=== PATIENT | female | born 1940 | race Caucasian/White ===

== ENCOUNTER → 2016-10-21 | Outpatient (CLI) | payer MEDICARE | LOC: LABWHC1 11:44 | PROVIDERS: ATTEND Internal Medicine Rheumatology | DX: M05.79 Rheumatoid arthritis with rheumatoid factor of multiple sites without organ or systems involvement (principal) | CPT/HCPCS: 36415; 86480 ==

== ENCOUNTER → 2016-11-26 | Outpatient (CLI) | payer MEDICARE ==
--- NOTE | 2016-11-26 11:23 | MM ---
Reason for exam: follow-up at short interval from prior study. Last mammogram was performed 6 months ago. History: Patient is postmenopausal. Family history of breast cancer in aunt at age 60, premenopausal breast cancer in mother at age 42, and breast cancer in aunt at age 80. Benign MG stereo VAD BX addl RT of the right breast, May 17, 2015. Benign MG stereo VAD BX RT of the right breast, May 17, 2015. Benign left mammotome panel of the left breast, December 18, 2006. Took estrogen for 2 years beginning at age 50. Physical Findings: Nurse did not find any significant physical abnormalities on exam. MG 3D Diag Mammo W/Cad RT CC, MLO, and ML view(s) were taken of the right breast. Prior study comparison: May 16, 2016, bilateral MG 3d screening mammo w/cad. November 16, 2015, right breast MG 3d diag mammo w/cad RT. Previous mammotome biopsy within the right breast x2. There may be a chest wall lymph node. No significant new findings when compared with previous films. These results were verbally communicated with the patient and result sheet given to the patient on 11/26/16. ASSESSMENT: Probably benign, BI-RAD 3 RECOMMENDATION: Follow-up diagnostic mammogram of both breasts in 6 months. Left on schedule in 6 months.
== END | disposition home or self-care (01) ==
LOC: RADMAMWWP 09:59
PROVIDERS: ATTEND Internal Medicine
DX: R92.8 Other abnormal and inconclusive findings on diagnostic imaging of breast (principal)
CPT/HCPCS: G0206; G0279

== ENCOUNTER → 2017-02-10 | Outpatient (CLI) | payer MEDICARE ==
--- NOTE | 2017-02-10 11:59 | BD ---
EXAMINATION TYPE: MG DEXA axial skeleton. DATE OF EXAM: 02/10/2017 CLINICAL HISTORY:Z78.0 Post [place] W/o HRT, Chronic Steroid UseZ79.52 Height: 63.25 Weight: 168 FRAX RISK QUESTIONS: Alcohol (3 or more units per day): no Family History (Parent hip fracture): no Glucocorticoids (More than 3mos): yes (Ex: prednisone, prednisolone, methylprednisolone, dexamethasone, and hydrocortisone). History of Fracture in Adulthood: yes nose; many years ago Secondary Osteoporosis: 1. Type 1 Diabetes: no 2. Hyperthyroidism: no 3. Menopause before 45: no 4. Malnutrition: no 5. Chronic liver disease: no Rheumatoid Arthritis: yes Current Tobacco Use: no RISK FACTORS HISTORY OF: Family History of Osteoporosis: no Active: yes Diet low in dairy products/other sources of calcium: no Postmenopausal woman: yes Take estrogen and/or progesterone medications: not now How long: about age [age] Lost more than 2 inches in height since high school: no Frequent falls: no Poor Health: no Hyperparathyroidism: no Adrenal Insufficiency: no MEDICATIONS: Prednisone or other steroids: yes How Long: several years Thyroid Medications: no Osteoporosis Medications: no Additional Medications: Vitamin D ; Calcium, Metformin, rheumatoid arthritis drugs Additional History: chronic steroid use, hip pain EXAM MEASUREMENTS: Bone mineral densitometry was performed using the [employer] System. Bone mineral density as measured about the Lumbar spine is: ----- L1-L4(G/cm2): 1.252 T Score Values are as follows: ----- L2: 0.6 ----- L3: 0.3 ----- L4: 0.4 ----- L1-L4: 0.6 Bone mineral density has: Decreased -7.7% since study of: 10/16/2014 Bone mineral density about the R hip (g/cm2): 0.939 Bone mineral density about the L hip (g/cm2): 1.111 T Score values are as follows: -----R Neck: -0.7 -----L Neck: 0.6 -----R Total: 0.2 -----L Total: 0.7 Bone mineral density has: Decreased -2.8% since study of: 10/16/2014 IMPRESSION: No evidence for osteoporosis or osteopenia. NOTE: T-SCORE=SD OF THE YOUNG ADULT MEAN.
== END | disposition home or self-care (01) ==
LOC: RADBDWWP 09:22
PROVIDERS: ATTEND Internal Medicine
DX: Z78.0 Asymptomatic menopausal state (principal); Z79.52 Long term (current) use of systemic steroids
CPT/HCPCS: 77080

== ENCOUNTER → 2017-07-21 | Outpatient (CLI) | payer MEDICARE ==
--- NOTE | 2017-07-21 11:46 | MM ---
Reason for exam: follow-up at short interval from prior study. Last mammogram was performed 8 months ago. History: Patient is postmenopausal. Family history of breast cancer in aunt at age 60, premenopausal breast cancer in mother at age 42, and breast cancer in aunt at age 80. Benign MG stereo VAD BX addl RT of the right breast, May 17, 2015. Benign MG stereo VAD BX RT of the right breast, May 17, 2015. Benign left mammotome panel of the left breast, December 18, 2006. Took estrogen for 2 years beginning at age 50. Physical Findings: Nurse did not find any significant physical abnormalities on exam. MG 3D Diag Mammo W/Cad CHANCE Bilateral CC and MLO view(s) were taken. Prior study comparison: November 26, 2016, right breast MG 3d diag mammo w/cad RT. May 16, 2016, bilateral MG 3d screening mammo w/cad. The breast tissue is heterogeneously dense. This may lower the sensitivity of mammography. Stable benign calcifications. Previous mammotome biopsy in the right and left breast. There is no discrete abnormality. No significant new findings when compared with previous films. These results were verbally communicated with the patient and result sheet given to the patient on 07/21/17. ASSESSMENT: Benign, BI-RAD 2 RECOMMENDATION: Routine screening mammogram of both breasts in 1 year.
== END | disposition home or self-care (01) ==
LOC: RADMAMWWP 10:53
PROVIDERS: ATTEND Internal Medicine
DX: R92.8 Other abnormal and inconclusive findings on diagnostic imaging of breast (principal)
CPT/HCPCS: 77066; G0279

== ENCOUNTER → 2017-07-31 | Outpatient (CLI) | payer MEDICARE | END | disposition home or self-care (01) | LOC: LABPAT 11:24 | PROVIDERS: ATTEND Orthopaedic Surgery | DX: Z01.812 Encounter for preprocedural laboratory examination (principal) | CPT/HCPCS: 36415; 86850; 86870; 86880; 86900; 86901; 87070 ==

== ENCOUNTER 2017-08-10 05:46 | Inpatient (IN) | payer MEDICARE ==
[2017-08-04 10:28] VITALS: BMI 28.6
--- NOTE | 2017-08-09 14:15 | HP ---
HISTORY AND PHYSICAL Surgery is scheduled for 08/10/2016. Evelia Chauhan is a 77-year-old patient seen with symptomatic left hip osteoarthritis. We discussed treatment options. She elected to proceed with direct anterior left total hip arthroplasty. Consent regarding the procedure was obtained. Medical clearance was provided by Dr. Rodgers. PAST MEDICAL HISTORY: Ksn-nvzbzbv-wuztvuovf diabetes, hypercholesterolemia, osteoarthritis. PAST SURGICAL HISTORY: Noncontributory. DAILY MEDICATIONS: Aleve, metformin, Zetia. ALLERGIES: Levaquin, iodine, prednisone. SOCIAL HISTORY: Patient denies current tobacco use. PHYSICAL EVALUATION OF THE LEFT HIP: She has diffuse tenderness. Limited range of motion with severe pain. Positive hip impingement sign. Straight leg raise is negative. Left lower extremity is approximately 0.5 inch shorter than the right. Distal neurovascular exam is intact. RADIOGRAPHS: Radiographs of the left hip reveal severe osteoarthritis. IMPRESSION: 1. Left hip osteoarthritis. 2. Daa-emnzyak-tlfahkjzu diabetes. 3. Hyperlipidemia. PLAN: Left total hip arthroplasty. MMODL / IJN: [id number] /
[~2017-08-10 05:46] MED LIST: ACETAMINOPHEN TAB 500 MG TAB PO ONE; HYDROmorphone 0.5 MG/0.5 ML SYRINGE IVP PRN; LIDOCAINE 1% 20 ML VIAL (10MG/ML) FOR IV START INTRADERMA PRN; MELOXICAM 7.5 MG TAB PO ONE; ONDANSETRON 4 MG/2 ML VIAL IVP ONE; TRANEXAMIC ACID 1,000 MG in SODIUM CHLORIDE 0.9% 50 ML IVPB ONE; ceFAZolin IN SWFI 2 GM/20 ML SYRINGE IVP ONE
[2017-08-10] MEDS: LACTATED RINGERS 1,000 ML IV SCH ×2 (06:30→11:24)
[2017-08-10 06:51] LABS: Glucose,Whole Blood 123 mg/dL (75-99)
[2017-08-10] MEDS ORDERED: ePHEDrine SULFATE/0.9% NACL/PF 50 MG/5 ML SYRINGE IV ONE (07:27)
[2017-08-10] MEDS ORDERED: ceFAZolin 1,000 MG in SODIUM CHLORIDE 0.9% 1,000 ML IRRIGATION ONE ×4 (07:27)
[2017-08-10] MEDS ORDERED: SODIUM CHLORIDE 0.9% 100 ML BAG ONE (07:27)
[2017-08-10] MEDS ORDERED: PHENYLEPHRINE-0.9% NACL SYG 1 MG/10 ML SYRINGE ONE (07:27)
[2017-08-10] MEDS ORDERED: MIDAZOLAM 2 MG/2 ML VIAL ONE (07:27)
[2017-08-10] MEDS ORDERED: PROPOFOL 10 MG/ML 20 ML VIAL IV ONE (07:27)
[2017-08-10] MEDS ORDERED: TRANEXAMIC ACID 1,000 MG/10 ML VIAL ONE (07:27)
[2017-08-10] MEDS ORDERED: fentaNYL (PF) 50 MCG/ML 2 ML AMP ONE (07:27)
[2017-08-10] MEDS ORDERED: LIDOCAINE 1% INJ 10MG/ML (20 ML MDV) ONE (07:27)
[2017-08-10] MEDS: ROPIVACAINE 246.25 MG, EPINEPHrine 0.5 MG, KETOROLAC 30 MG, cloNIDine HCL/PF 80 MCG, WA... MISCELLANE ONE ×10 (07:59→08:45)
[2017-08-10] MEDS ORDERED: LACTATED RINGERS 1,000 ML IV ONE (08:54)
[2017-08-10] MEDS ORDERED: HYDROcodone/APAP 7.5-325MG 1 EACH TAB PO PRN ×2 (09:31)
[2017-08-10] MEDS ORDERED: NALOXONE 0.4 MG/ML 1 ML VIAL IV PRN (09:31)
[2017-08-10] MEDS ORDERED: ONDANSETRON 4 MG/2 ML VIAL IVP PRN (09:31)
[2017-08-10] MEDS ORDERED: hydrOXYzine PAMOATE 25 MG CAP PO PRN (09:31)
[2017-08-10] MEDS ORDERED: HYDROmorphone 0.5 MG/0.5 ML SYRINGE IVP PRN ×3 (09:31)
--- NOTE | 2017-08-10 09:31 | P.OP ---
Date of Procedure: 08/10/17 Preoperative Diagnosis: Left hip osteoarthritis Postoperative Diagnosis: Left hip osteoarthritis Procedure(s) Performed: Direct anterior left total hip arthroplasty Implants: 1. Depuy Corail KLA size 10 high offset collar press-fit femoral stem 2. Depuy pinnacle 52 mm press-fit acetabular shell 3. Depuy polyethylene acetabular neutral liner 36 mm ID 52 mm OD 4. Biolox delta ceramic femoral head +1.5 36 mm Anesthesia: local, spinal Surgeon: Ambrosio Norton Foreign [employer] Teacher #1: Corey Guardado Estimated Blood Loss (ml): 150 Pathology: other (Femoral head) Condition: stable Disposition: PACU Indications for Procedure: 77-year-old patient seen with symptomatic left hip osteoarthritis. After treatment options were discussed, she elected to proceed with total hip arthroplasty. Operative Findings: see description of procedure Description of Procedure: The patient was taken to the operative suite. Patient underwent a spinal anesthetic by the department of anesthesia. Patient was then transferred to the [place] table. Patient was given preoperative IV antibiotics and TXA. Both lower extremities were placed in standard leg spars. The hip was then prepped and draped in the normal sterile orthopedic fashion. A standard anterior incision was made beginning 3 cm lateral and 1 cm distal to the ASIS extending 10 cm. Dissection was then carried down through the subcutaneous soft tissues down to the fascia overlying the tensor fascia zora. An incision was now made through the fascia. Careful dissection was taken down exposing the tensor fascia zora muscle. A Cobra retractor was now placed along the medial femoral neck and a second one along the lateral femoral neck. The venous circumflex vessels were now identified, cauterized and clipped. We identified the anterior hip capsule. An incision was made through the hip capsule along the lateral border. Tag sutures were then placed along the anterior capsule and lateral capsule. We then performed a capsulotomy. Retractors were now placed around the femoral neck itself. A Cobra retractor was now placed along the anterior acetabulum. Good exposure was now noted of the femoral head/neck complex. Residual labrum was debrided out. We placed the extremity into 3 turns of fine traction. We were then able to introduce a skid in between the femoral head and acetabulum. A placed a awl into the femoral head. We took 2 turns of traction off the extremity. Rotation was now released. The femoral head was then dislocated without difficulty. Additional releasing was performed of the capsule. The head was then reduced. All traction was released. A femoral neck cut was now made with a sagittal saw. It was completed with an osteotome at the lateral neck area. The femoral head was now removed without difficulty. There was advanced osteoarthritis noted of both the femoral head and acetabulum. The extremity was now rotated to 60 of external rotation. It was locked in position. Residual labrum was now debrided out. Serial reaming was performed of the acetabulum. Once we reached the appropriate size and a trial was position and fit nicely. The appropriate size was now chosen opened and made available. The wound was irrigated with pulse lavage mechanical irrigation. It was introduced into the acetabulum without difficulty. The C-arm/fluoroscopy was now brought into the operative field. We made sure we had a true AP pelvic view. We now under direct C-arm/ fluoroscopy introduced into the acetabular component with appropriate version and inclination. It was well seated and stable. The C-arm was pulled back. An appropriate liner was introduced and clicked into position. It was felt to be stable. At this point retractors were removed. The extremity was now placed into 120 external rotation with no traction. The leg was now dropped to the ground and adducted. Appropriate retractors were now positioned along the proximal femur. We also placed our femoral look into position. Additional capsular releasing was performed to gain access to the proximal femur. We now used a box osteotome. A canal finder was now utilized. Serial broaching was now performed until we reached the appropriate size with good overall rotational stability. Appropriate calcar planing was performed. A trial head/ neck was placed into position. The hip was now reduced. The C-arm/fluoroscopy was brought back into the operative field. A spot film was obtained of the nonoperative hip. A spot film was obtained of the trial components. Overlays were performed, we noted good overall alignment and positioning for determining leg length. The C-arm/fluoroscopy was pulled back. Retractors were repositioned and the hip was dislocated. The leg was again taken down to the ground and adducted. Appropriate retractors were repositioned as well as the femoral hook. All trial components were removed. The femoral implant was opened along with the femoral head. The femoral implant was introduced with good purchase and fixation noted. The femoral head was introduced with good positioning and fixation noted. The deep soft tissues were infiltrated with local analgesic. Retractors were now removed. The hip was now reduced. There appeared be good positioning of the hip. This was confirmed under fluoroscopy and spot films were obtained to document this. A second gram of TXA was given. Bipolar cautery had been utilized intermittently through the procedure for hemostasis. The wound was irrigated copiously with pulse lavage mechanical irrigation. The fascia was repaired with Vicryl suture. The subcutaneous soft tissues were repaired in layers with Vicryl suture. The skin was approximated with pernio/Dermabond. Sterile dressings were applied. Patient was then awakened, transferred to a bed and taken to recovery in stable condition. Jesus OSUNA assisted with the procedure.
--- NOTE | 2017-08-10 09:47 | XR ---
EXAMINATION TYPE: XR Hip Limited LT, FL guidance operating room DATE OF EXAM: 08/10/2017 COMPARISON: NONE HISTORY: 77-year-old female left anterior hip replacement in OR FINDINGS: Single AP view during left hip total arthroplasty. FLUOROSCOPY Fluoroscopy time of 19 seconds was used during anterior left hip replacement. 1 image/s document/s t he procedure. IMPRESSION: Intraoperative fluoroscopy during left hip total arthroplasty.
[2017-08-10] MEDS ORDERED: guaiFENesin 600 MG TABLET.ER PO PRN (11:03)
[2017-08-10 11:47] LABS: Glucose,Whole Blood 118 mg/dL (75-99)
[2017-08-10] MEDS ORDERED: MULTIVITAMINS, THERA 1 EACH TAB PO SCH (12:00)
[2017-08-10] MEDS: INSULIN ASPART 100 UNIT/ML 1 ML 10 ML VIAL SQ SCH ×3 (12:42→23:00)
[2017-08-10] MEDS: traMADol 50 MG TAB PO SCH ×3 (12:54→23:14)
[2017-08-10] MEDS: ceFAZolin IN SWFI 2 GM/20 ML SYRINGE IVP SCH ×2 (15:46→23:07)
[2017-08-10 17:13] LABS: Glucose,Whole Blood 153 mg/dL (75-99)
[2017-08-10 20:23] LABS: Glucose,Whole Blood 169 mg/dL (75-99)
[2017-08-10] MEDS ORDERED: SENNOSIDES-DOCUSATE SODIUM 1 EACH TAB PO SCH (21:00)
[2017-08-10 21:31] LABS: Hemoglobin A1C 6.2 % (4.0-6.0)
--- NOTE | 2017-08-11 05:51 | PN ---
PROGRESS NOTE CHIEF COMPLAINT: Re-evaluation post left total hip arthroplasty. HISTORY OF PRESENT ILLNESS: This 77-year-old female was admitted to the hospital and undergone left total hip arthroplasty. The patient is actually feeling well this afternoon and this evening she is sitting up in a chair without any major complaints except for some nausea. Pain well controlled. 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 REVIEW OF SYSTEMS: NEURO: Denies any headaches dizziness. PSYCH: No anxiety. CARDIAC: No chest pain, angina, palpitation. RESPIRATORY: No shortness of breath, cough, hemoptysis. GI: Some nausea, no vomiting, no abdominal pain, no diarrhea. : No symptoms of dysuria or hematuria. EXTREMITIES: Denies pain. CONSTITUTIONAL: No fever or chills. PHYSICAL EXAMINATION: Pleasant female in no distress. VITAL SIGNS: The patient is afebrile. Blood pressure recorded earlier was 120/73, pulse ox of 89% and pulse rate of 77. HEENT: Normocephalic. NECK: No JVD. CHEST: Clear to auscultation with occasional rhonchi right base. CARDIAC: Distant heart sounds, S1, S2 with no gallops. Irregular rhythm. Systolic murmur 2/6 left sternal border. ABDOMEN: Soft. Bowel sounds normal. Extremities reveal no edema. Absent right radial pulse. NEUROLOGICAL: Awake, alert, oriented x3 with well-coordinated movements both upper extremities. LABORATORY ASSESSMENT: Blood sugar of 153 a.c. lunch. ASSESSMENT: 1. Diabetes mellitus, adequately controlled. 2. 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 3. Status post left hip arthroplasty. 4. Hypertension. 5. Recent respiratory infection, resolved. PLAN: The patient is stable. Continue present medical regimen. Patient's condition discussed with the patient. Blood sugars will be monitored and covered with insulin as needed. MMODL / IJN: [id number] /
[2017-08-11 07:09] LABS: Glucose,Whole Blood 114 mg/dL (75-99)
[2017-08-11 07:24] VITALS: BP 130/73; PULSE 69; RESP 16; TEMP 99.5
[2017-08-11] MEDS: LACTATED RINGERS 1,000 ML IV SCH ×3 (07:29→09:03)
[2017-08-11] MEDS: traMADol 50 MG TAB PO SCH (07:36)
[2017-08-11] MEDS: INSULIN ASPART 100 UNIT/ML 1 ML 10 ML VIAL SQ SCH (08:01)
[2017-08-11] MEDS ORDERED: ACETAMINOPHEN TAB 500 MG TAB PO PRN (08:02)
[2017-08-11 08:11] LABS: Basophils % (A) 0 %; Eosinophils # (A) 0.1 k/uL (0-0.7); Eosinophils % (A) 1 %; HCT 37.3 % (34.0-46.0); Lymphocytes # (A) 1.7 k/uL (1.0-4.8); Lymphocytes % (A) 23 %; MCH 29.8 pg (25.0-35.0); MCHC 31.3 g/dL (31.0-37.0); MCV 95.2 fL (80.0-100.0); Monocytes # (A) 0.4 k/uL (0-1.0); Monocytes % (A) 6 %; Neutrophils # (A) 4.9 k/uL (1.3-7.7); Neutrophils % (A) 68 %; Platelet Count 188 k/uL (150-450); RBC 3.92 m/uL (3.80-5.40); RDW 12.2 % (11.5-15.5); WBC 7.2 k/uL (3.8-10.6)
[2017-08-11 08:13] LABS: HGB 11.7 gm/dL (11.4-16.0)
[2017-08-11] MEDS ORDERED: metFORMIN 500 MG TAB PO SCH (09:00)
[2017-08-11] MEDS ORDERED: FAMOTIDINE 20 MG TAB PO SCH (09:00)
[2017-08-11] MEDS ORDERED: NON-FORMULARY DRUG (Multivitamin/Iron/Folic Acid [Centrum Complete Multivit Tab] 1 TAB) PO SCH (09:00)
[2017-08-11] MEDS ORDERED: ENOXAPARIN 40 MG/0.4 ML SYRINGE SQ SCH (09:00)
[2017-08-11] MEDS ORDERED: EZETIMIBE 10 MG TAB PO SCH (09:00)
--- NOTE | 2017-08-11 10:38 | P.PN ---
Subjective Progress Note Date: 08/11/17 Principal diagnosis: Status post left total hip arthroplasty Patient seen today resting in her hospital chair, her was present at bedside. Patient's doing very well this time, she's ambulated well therapy. She urinated without assistance. It was a little bit of nausea and vomiting initially after surgery yesterday, this has improved. She denies any headaches , lightheadedness, chest pain or shortness of breath. Objective - Vital Signs Vital signs: Vital Signs Temp 99.5 F 08/11/17 07:24 Pulse 69 08/11/17 07:24 Resp 16 08/11/17 07:24 BP 130/73 08/11/17 07:24 Pulse Ox 93 L 08/11/17 07:24 Intake & Output 08/10/17 08/11/17 08/11/17 18:59 06:59 18:59 Intake Total 1452 1120 880 Output Total 450 Balance 1002 1120 880 Weight 75.75 kg Intake: IV 1052 640 Lactated Ringers 1,000 ml 640 @ 80 mls/hr IV .[id number] CARIDAD Rx#:[id number] Intake, IV Titration 640 Amount Lactated Ringers 1,000 ml 640 @ 80 mls/hr IV .[id number] CARIDAD Rx#:[id number] Oral 400 480 240 Output: Urine 300 Estimated Blood Loss 150 Other: # Voids 1 3 - Exam Left lower extremity: Incision is clean, dry, and intact. The prineo tape is in good condition. There is minimal soft tissue swelling and ecchymosis surrounding the medial and lateral aspects of the incision. Calf is soft, no tenderness with palpation. Plantar flexion, dorsiflexion, EHL, FHL are intact. Sensory exam to light touch throughout the extremity is intact, dorsal pedis pulses 2+. - Labs CBC & Chem 7: 08/11/17 07:25 Labs: Abnormal Lab Results - Last 24 Hours (Table) 08/10/17 08/10/17 08/10/17 Range/Units 11:39 11:43 17:10 POC Glucose (mg/dL) 118 H 153 H (75-99) mg/dL Hemoglobin A1c 6.2 H (4.0-6.0) % 08/10/17 08/11/17 Range/Units 20:21 07:05 POC Glucose (mg/dL) 169 H 114 H (75-99) mg/dL Hemoglobin A1c (4.0-6.0) % Assessment and Plan Plan: Assessment: 1. Postop day 1 status post left total hip arthroplasty Plan: 1. Pain control, will utilize tramadol and Tylenol at home 2. GI and DVT prophylaxis, aspirin 325 mg twice a day 3. Wound care instructions discussed 4. Home physical therapy and nursing after discharge 5. Medical recommendations 6. Discharge planning: Patient will likely be discharged home today Time with Patient: Less than 30
--- NOTE | 2017-08-11 10:41 | P.DS ---
Providers Date of admission: 08/10/17 05:46 Expected date of discharge: 08/11/17 Attending physician: Ambrosio Norton Consults: 08/10/17 09:31 Consult Physician Routine Consulting Provider: Caio Rodgers Reason/Comments: Medical management Do you want consulting provider notified?: Yes Primary care physician: Caio Rodgers Hospital Course: Date of admission: 08/10/2017 Date of discharge: 08/11/2017 Admission diagnosis: Status post left total hip arthroplasty Discharge diagnosis: Same Attending physician: Dr. Norton Surgical procedures: Left total hip arthroplasty Brief history: Patient is a 77-year-old female with a history of progressive primary left hip osteoarthritis. At this point patient has failed conservative treatment measures and has opted to proceed with a elective left total hip arthroplasty. Hospital course: Details of patient's surgery can be found in operative report. Patient tolerated the procedure well and was subsequently transported to orthopedic floor. Patient's orthopeidc and medical care was provided daily. Patient had daily laboratory tests performed for evaluation of overall blood counts. Patient had daily physical therapy to include strengthening range of motion as well as education with walker ambulation. Patient was treated with Lovenox for their postoperative DVT prophylaxis during their inpatient stay. Patient was noted to have a relatively uneventful postoperative course. Patient reported satisfactory pain control with oral pain medications by postoperative day 0. Patient showed satisfactory progress with physical therapy. Patient moved steadily through the program and had no difficulty meeting the goals by postoperative day 1 . Given patient's otherwise satisfactory course and having met physical therapy goals, plan is to discharge patient home on postoperative day 1 . Discharge condition/disposition: Patient will be discharged home in stable condition. Discharge medications: Instructions are given on resumption of patient's normal daily medications per primary care recommendation, in addition patient will be prescribed tramadol 50 mg, Colace 100 mg, aspirin 325 mg, Pepcid 20 mg. Discharge instructions: 1. Wound care and infection precautions, keep incision dry and covered while showering, no lotions, creams, moisturizers. No soaking, tubs, pools, hottubs. Do not scrub over the incision. 2. Weight-bear as tolerated with walker / cane until follow-up. 3. Ice and elevate when necessary. Do not exceed 20 minutes per hour with ice pack. 4. Utilize compression sleeve until seen at first follow up appointment. 5. Visiting nursing care. 6. Home physical therapy. 7. Pain meds and anticoagulants per prescription. 8. Pain medication has potential to cause constipation. Increase oral fluid and fiber intake. Contact primary care provider if you have not had a bowel movement within 48 hours after discharge 9. No anti-inflammatory medication until discussed at first post operative visit, this including Motrin, Aleve, Mobic, Diclofenac. 10. Follow up in office at 2 weeks postop with Jesus Guardado PA-C 11. Follow up with your primary care doctor 7-10 days after discharge. 12. Contact [facility] with any questions, . Procedures: Left total hip arthroplasty Patient Condition at Discharge: Good Plan - Discharge Summary Discharge Rx Participant: Yes New Discharge Prescriptions: New Aspirin 325 mg PO BID #60 tab Docusate [Colace] 100 mg PO DAILY #30 capsule Famotidine [Pepcid] 20 mg PO DAILY #30 tablet traMADol HCl [Ultram] 50 mg PO Q6H PRN #40 tab PRN Reason: Pain No Action Multivitamin/Iron/Folic Acid [Centrum Complete Multivit Tab] 1 tab PO DAILY Calcium Carbonate [Calcium] 600 mg PO DAILY Dunbar-3 Fatty Acids/Fish Oil [Fish Oil 1,000 mg Softgel] 1 cap PO DAILY Cholecalciferol [Vitamin D3] 1,000 unit PO DAILY metFORMIN HCL [Glucophage] 500 mg PO DAILY Turmeric Root Extract [Turmeric] 500 mg PO DAILY Ezetimibe [Zetia] 10 mg PO DAILY Acetaminophen [Tylenol] 650 mg PO Q6H PRN PRN Reason: Pain guaiFENesin [Mucinex] 600 mg PO Q12H PRN PRN Reason: Congestion Discharge Medication List Calcium Carbonate [Calcium] 600 mg PO DAILY 09/06/15 [History] Cholecalciferol [Vitamin D3] 1,000 unit PO DAILY 09/06/15 [History] Multivitamin/Iron/Folic Acid [Centrum Complete Multivit Tab] 1 tab PO DAILY 04/13 [History] Dunbar-3 Fatty Acids/Fish Oil [Fish Oil 1,000 mg Softgel] 1 cap PO DAILY [History] metFORMIN HCL [Glucophage] 500 mg PO DAILY 02/19/16 [History] Acetaminophen [Tylenol] 650 mg PO Q6H PRN 08/04/17 [History] Ezetimibe [Zetia] 10 mg PO DAILY 08/04/17 [History] Turmeric Root Extract [Turmeric] 500 mg PO DAILY 08/04/17 [History] guaiFENesin [Mucinex] 600 mg PO Q12H PRN 08/04/17 [History] Aspirin 325 mg PO BID #60 tab 08/11/17 [Rx] Docusate [Colace] 100 mg PO DAILY #30 capsule 08/11/17 [Rx] Famotidine [Pepcid] 20 mg PO DAILY #30 tablet 08/11/17 [Rx] traMADol HCl [Ultram] 50 mg PO Q6H PRN #40 tab 08/11/17 [Rx] Follow up Appointment(s)/Referral(s): Caio Rodgers MD [Primary Care Provider] - 08/18/17 3:45 pm Corey Guardado PAC [PHYSICIAN [employer]] - 08/26/17 1:30 pm [facility] Visiting Nurse, [NON-STAFF] - (Accepted patient and will follow post discharge.) Patient Instructions/Handouts: Anterior Hip Replacement (DC) Activity/Diet/Wound Care/Special Instructions: Orthopedic Discharge Instructions: 1. Wound care and infection precautions, [keep incision dry and covered while showering], no lotions, creams, moisturizers. No soaking, pools, hot tubs. Do not scrub over incision. 2. Weight-bear [as tolerated] with walker / cane until follow-up. 3. Ice and elevate when necessary. Do not exceed 20 minutes per hour with ice pack. 4. Utilize compression sleeve until seen at first follow up appointment. 5. Visiting nursing care. 6. Home physical therapy. 7. Pain meds and anticoagulants per prescription. 8. Pain medication has potential to cause constipation. Increase oral fluid and fiber intake. Contact primary care provider if you have not had a bowel movement within 48 hours after discharge. 9. No anti-inflammatory medication until discussed at first post operative visit, this including Motrin, Aleve, Mobic, Diclofenac. 10. Follow up in office at 2 weeks postop with Jesus Guardado PA-C 11. Follow up with your primary care doctor 7-10 days after discharge. 12. Contact [facility] with any questions, . Discharge Disposition: HOME WITH HOME HEALTH SERVICES
[2017-08-11 11:34] LABS: Glucose,Whole Blood 113 mg/dL (75-99)
[2017-08-11] MEDS ORDERED: CALCIUM CARBONATE 500 MG CHEWABLE PO SCH (12:00)
[2017-08-11] MEDS ORDERED: CHOLECALCIFEROL 1,000 UNIT TAB PO SCH (12:00)
--- NOTE | 2017-08-11 20:04 | PN ---
PROGRESS NOTE ATTENDING PHYSICIAN: Dr. Norton. CONSULTING PHYSICIAN: Dr. Josias Rodgers. CHIEF COMPLAINT: Re-evaluation. HISTORY OF PRESENT ILLNESS: A 77-year-old female was admitted to the hospital and undergone left total hip arthroplasty. The patient is actually feeling much better. She did have some nausea and vomiting last night. The patient denies any other associated symptoms today. Symptoms seem to have occurred after she had taken [place] and tramadol. REVIEW OF SYSTEMS: Neuro: Denies any headaches, dizziness. Psych: No anxiety. Cardiac: No chest pain, angina or palpitation. Respiratory: Denies shortness of breath. Minimal cough. No hemoptysis. GI: Episode of nausea, vomiting last night, none at present. No abdominal pain. No diarrhea. No bowel movement. no symptoms, dysuria, hematuria. Extremities some pain in the left hip. Constitutional: No fever or chills. PHYSICAL EXAMINATION: Pleasant female in no distress. Vital signs reveals temperature 99.5, pulse 69, respirations 16, blood pressure 130/70, pulse ox 93% on room air. HEENT: Normocephalic. Neck no JVD. CHEST: Clear to auscultation and percussion. Cardiac: Normal S1, S2 with no gallops, murmurs. ABDOMEN: Soft. Bowel sounds active. Extremities revealed trace edema left leg. NEUROLOGIC: Awake, alert, oriented with well-coordinated movements both upper extremities. LABORATORY ASSESSMENT: CBC which revealed a hemoglobin 11.7, white count 7.2, blood sugar 113. ASSESSMENT: 1. Diabetes mellitus, adequately controlled. 2. Recent upper respiratory infection, resolved. 3. Status post left hip arthroplasty. 4. Nausea, vomiting secondary to pain medication. PLAN: The patient is stable. Continue present medical regimen. Patient recommended not to use [place] and recommended to use tramadol and Tylenol for pain. Prognosis guarded. Patient is going to be discharged and follow up with outpatient as needed. She will contact me. MACIE / SELINA: [phone] /
== END 2017-08-11 12:10 | disposition home health service (06) | DRG 470 ==
LOC: 2ORMAIN 05:46 → 3SUR 09:05
PROVIDERS: ADMIT Orthopaedic Surgery; ATTEND Orthopaedic Surgery
PROC: 0SRB04A Replacement of Left Hip Joint with Ceramic on Polyethylene Synthetic Substitute, Uncemented, Open Approach (ICD-10-PCS; principal; 2017-08-10 07:30)
DX: M16.12 Unilateral primary osteoarthritis, left hip (principal); J84.9 Interstitial pulmonary disease, unspecified; E11.9 Type 2 diabetes mellitus without complications; M06.9 Rheumatoid arthritis, unspecified; E78.00 Pure hypercholesterolemia, unspecified; E78.5 Hyperlipidemia, unspecified; I10 Essential (primary) hypertension; R11.2 Nausea with vomiting, unspecified; T50.995A Adverse effect of other drugs, medicaments and biological substances, initial encounter; L57.0 Actinic keratosis; K58.9 Irritable bowel syndrome, unspecified; I70.0 Atherosclerosis of aorta; I70.208 Unspecified atherosclerosis of native arteries of extremities, other extremity; Z79.84 Long term (current) use of oral hypoglycemic drugs; Z79.82 Long term (current) use of aspirin; Z79.899 Other long term (current) drug therapy; Y92.239 Unspecified place in hospital as the place of occurrence of the external cause
CPT/HCPCS: 36415; 73501; 83036; 85025; 86850; 86870; 86880; 86900; 86901; 88300

== ENCOUNTER → 2018-08-11 | Outpatient (CLI) | payer MEDICARE ==
--- NOTE | 2018-08-12 13:48 | MM ---
Reason for exam: screening (asymptomatic). Last mammogram was performed 1 year and 1 month ago. History: Patient is postmenopausal. Family history of breast cancer in aunt at age 60, premenopausal breast cancer in mother at age 42, and breast cancer in aunt at age 80. Benign MG stereo VAD BX addl RT of the right breast, May 17, 2015. Benign MG stereo VAD BX RT of the right breast, May 17, 2015. Benign left mammotome panel of the left breast, December 18, 2006. Took estrogen for 2 years beginning at age 50. Physical Findings: A clinical breast exam by your physician is recommended on an annual basis and results should be correlated with mammographic findings. MG 3D Screening Mammo W/Cad Bilateral CC and MLO view(s) were taken. Prior study comparison: July 21, 2017, bilateral MG 3d diag mammo w/cad [facility]. November 26, 2016, right breast MG 3d diag mammo w/cad RT. The breast tissue is heterogeneously dense. This may lower the sensitivity of mammography. Biopsy marker noted on the left. No suspicious abnormality. Post surgical change on the right. No significant changes when compared with prior studies. ASSESSMENT: Benign, BI-RAD 2 RECOMMENDATION: Routine screening mammogram of both breasts in 1 year.
== END | disposition home or self-care (01) ==
LOC: RADMAMWWP 10:49
PROVIDERS: ATTEND Internal Medicine
DX: Z12.31 Encounter for screening mammogram for malignant neoplasm of breast (principal)
CPT/HCPCS: 77063; 77067

== ENCOUNTER → 2020-01-03 | Outpatient (CLI) | payer MEDICARE ==
--- NOTE | 2020-01-03 15:51 | XR ---
EXAMINATION TYPE: XR chest 2V DATE OF EXAM: 01/03/2020 COMPARISON: 09/06/2015 INDICATION: Cough TECHNIQUE: Frontal and lateral views of the chest are obtained. FINDINGS: The heart size is mildly prominent. The pulmonary vasculature is normal. The lungs are clear. IMPRESSION: 1. Mild cardiomegaly.
--- NOTE | 2020-01-03 16:24 | BD ---
EXAMINATION TYPE: Axial Bone Density DATE OF EXAM: 01/03/2020 COMPARISON: 02.10.2017 CLINICAL HISTORY: 79 YR OLD FEMALE.....ICD-10 CODE: M81.0 AGE RELATED OSTEOPOROSIS Height: 62 Weight: 156 FRAX RISK QUESTIONS: Glucocorticoids (More than 3mos): YES (Ex: prednisone, prednisolone, methylprednisolone, dexamethasone, and hydrocortisone). Rheumatoid Arthritis: YES RISK FACTORS HISTORY OF: Surgery to LT HIP REPLACEMENT, AT AGE 77 YRS OLD Postmenopausal woman: YES, AT AGE 50 Take estrogen and/or progesterone medications: IN PAST FOR A SHORT WHILE Hyperparathyroidism: NO Adrenal Insufficiency: NO MEDICATIONS: Prednisone or other steroids: YES, FOR ILLNESS, ON PREDNISONE NOW Additional Medications: METFORMIN, PAIN MEDS, STATIN FOR CHOLESTEROL, VIT D AND CALCIUM, Additional History: RA, DIABETIC, CHOLESTEROL, EXAM MEASUREMENTS: Bone mineral densitometry was performed using the [employer] System. Bone mineral density as measured about the Lumbar spine is: ----- L1-L4(G/cm2): 1.418 T Score Values are as follows: ----- L1: 2.1 ----- L2: 2.1 ----- L3: 1.3 ----- L4: 2.4 ----- L1-L4: 2.0 Bone mineral density has: Increased 14.1% since study of: 02.10.2017 Bone mineral density about the R hip (g/cm2): 1.084 T Score values are as follows: -----R Neck: -0.3 -----R Total: 0.6 Bone mineral density has: Increased 4.5% since study of: 02.10.2017 FRAX%s: THERE IS A 25.9% CHANCE FOR A MAJOR OSTEOPOROTIC FX AND A 4.1% FOR HIP.....PROBABILITY FOR FX IN 10 YRS TIME IMPRESSION: Normal (Values between +1 and -1 indicate normal bone mass). Consider repeating this study in 5 year s or sooner if there is some new clinical indication. NOTE: T-SCORE=SD OF THE YOUNG ADULT MEAN.
--- NOTE | 2020-01-04 13:40 | MM ---
Reason for exam: screening (asymptomatic). Last mammogram was performed 1 year and 5 months ago. History: Patient is postmenopausal. Family history of breast cancer in aunt at age 60, premenopausal breast cancer in mother at age 42, and breast cancer in aunt at age 80. Benign MG stereo VAD BX addl RT of the right breast, May 17, 2015. Benign MG stereo VAD BX RT of the right breast, May 17, 2015. Benign left mammotome panel of the left breast, December 18, 2006. Took estrogen for 2 years beginning at age 50. Physical Findings: A clinical breast exam by your physician is recommended on an annual basis and results should be correlated with mammographic findings. MG 3D Screening Mammo W/Cad Bilateral CC and MLO view(s) were taken. Prior study comparison: August 11, 2018, bilateral MG 3d screening mammo w/cad. July 21, 2017, bilateral MG 3d diag mammo w/cad [facility]. There are scattered fibroglandular densities. No significant changes when compared with prior studies. ASSESSMENT: Benign, BI-RAD 2 RECOMMENDATION: Routine screening mammogram of both breasts in 1 year.
== END | disposition home or self-care (01) ==
LOC: RADMAMWWP 12:29
PROVIDERS: ATTEND Internal Medicine Geriatric Medicine
DX: Z12.31 Encounter for screening mammogram for malignant neoplasm of breast (principal); M81.0 Age-related osteoporosis without current pathological fracture; R05 Cough; I51.7 Cardiomegaly
CPT/HCPCS: 71046; 77063; 77067; 77080

== ENCOUNTER → 2021-02-26 | Outpatient (CLI) | payer MEDICARE ==
--- NOTE | 2021-02-26 16:06 | XR ---
EXAMINATION TYPE: XR chest 2V DATE OF EXAM: 02/26/2021 COMPARISON: 01/03/2020 INDICATION: Persistent cough TECHNIQUE: Frontal and lateral views of the chest are obtained. FINDINGS: The heart size is normal. The pulmonary vasculature is normal. The lungs are clear. Chronic scarring is in the right midlung. IMPRESSION: 1. No acute pulmonary process.
== END | disposition home or self-care (01) ==
LOC: RADXRMAIN 15:16
PROVIDERS: ATTEND Internal Medicine Geriatric Medicine
DX: J84.116 Cryptogenic organizing pneumonia (principal)
CPT/HCPCS: 71046

== ENCOUNTER → 2021-02-26 | Outpatient (CLI) | payer MEDICARE ==
--- NOTE | 2021-02-28 10:19 | MM ---
Reason for exam: screening (asymptomatic). Last mammogram was performed 1 year and 2 months ago. History: Patient is postmenopausal. Family history of breast cancer in aunt at age 60, premenopausal breast cancer in mother at age 42, and breast cancer in aunt at age 80. Benign MG stereo VAD BX addl RT of the right breast, May 17, 2015. Benign MG stereo VAD BX RT of the right breast, May 17, 2015. Benign left mammotome panel of the left breast, December 18, 2006. Took estrogen for 2 years beginning at age 50. Physical Findings: A clinical breast exam by your physician is recommended on an annual basis and results should be correlated with mammographic findings. MG 3D Screening Mammo W/Cad Bilateral CC and MLO view(s) were taken. Prior study comparison: January 03, 2020, bilateral MG 3d screening mammo w/cad. August 11, 2018, bilateral MG 3d screening mammo w/cad. July 21, 2017, bilateral MG 3d diag mammo w/cad [facility]. May 16, 2016, bilateral MG 3d screening mammo w/cad. There are scattered fibroglandular densities. Previous mammotome biopsy in the right and left breast. No significant changes when compared with prior studies. ASSESSMENT: Benign, BI-RAD 2 RECOMMENDATION: Routine screening mammogram of both breasts in 1 year.
== END | disposition home or self-care (01) ==
LOC: RADMAMWWP 15:34
PROVIDERS: ATTEND Internal Medicine Geriatric Medicine
DX: Z12.31 Encounter for screening mammogram for malignant neoplasm of breast (principal); Z80.3 Family history of malignant neoplasm of breast
CPT/HCPCS: 77063; 77067

== ENCOUNTER → 2021-10-22 | Outpatient (CLI) | payer MEDICARE ==
--- NOTE | 2021-10-22 12:27 | XR ---
EXAMINATION TYPE: XR chest 2V DATE OF EXAM: 10/22/2021 COMPARISON: Chest x-ray February 26, 2021 HISTORY: Cough and congestion for one month. TECHNIQUE: Frontal and lateral views of the chest are obtained. FINDINGS: There is chronic parenchymal changes bilaterally including periphery right upper and midlun g. There is no suspicious new focal air space opacity, pleural effusion, or pneumothorax seen. The c ardiac silhouette size is stable and upper limits of normal. Multilevel spurring in the thoracic spin e redemonstrated. IMPRESSION: Chronic changes without acute pulmonary process.
== END | disposition home or self-care (01) ==
LOC: RADXRMAIN 12:07
PROVIDERS: ATTEND Nurse Practitioner Family
DX: J40 Bronchitis, not specified as acute or chronic (principal)
CPT/HCPCS: 71046

== ENCOUNTER → 2022-04-04 | Outpatient (CLI) | payer MEDICARE ==
--- NOTE | 2022-04-07 08:28 | MM ---
Reason for Exam: Screening (asymptomatic). Last mammogram was performed 1 year(s) and 2 month(s) ago. Patient History: Menarche at age 12. First Full-Term at age 23. Postmenopausal. Estrogen for 2 years from age 50 until age 52. 05/17/2015, Benign Core Biopsy on the right side. 05/17/2015, Benign Core Biopsy on the right side. 12/18/2006, Benign Core Biopsy on the left side. Maternal aunt had breast cancer, age 60. Maternal aunt had breast cancer, age 80. Mother had breast cancer, age 42. Risk Values: Kelley 5 year model risk: 4.6%. NCI Lifetime model risk: 6.6%. Prior Study Comparison: 08/11/2018 Bilateral Screening Mammogram, [facility]. 01/03/2020 Bilateral Screening Mammogram, [facility]. 02/26/2021 Bilateral Screening Mammogram, [facility]. Tissue Density: There are scattered fibroglandular densities. Findings: Analyzed By CAD. Surgical clips are within the right breast. A surgical clip is within the left breast. Benign stable calcifications are present bilaterally. No suspicious groups of microcalcifications, spiculated or lobular masses, architectural distortion or other secondary signs of malignancy are mammographically apparent. Overall Assessment: Benign, BI-RAD 2 Management: Screening Mammogram of both breasts in 1 year. A negative mammogram report should not preclude additional follow up of suspicious palpable abnormalities. Patient should continue monthly self breast exam. A clinical breast exam by your physician is recommended on an annual basis and results should be correlated with mammographic findings. Electronically signed and approved by: Chris Rodriguez D.O. Radiologis
== END | disposition home or self-care (01) ==
LOC: RADMAMWWP 13:05
PROVIDERS: ATTEND Internal Medicine Geriatric Medicine
DX: Z12.31 Encounter for screening mammogram for malignant neoplasm of breast (principal)
CPT/HCPCS: 77063; 77067

== ENCOUNTER → 2022-09-17 | Day surgery (SDC) | payer MEDICARE ==
[2022-09-15 10:03] VITALS: BMI 27.4
[~2022-09-17] MED LIST changes: -ACETAMINOPHEN TAB 500 MG TAB PO ONE; +ATROPINE SULFATE 0.4 MG/ML 1 ML VIAL IM ONE; -HYDROmorphone 0.5 MG/0.5 ML SYRINGE IVP PRN; +LACTATED RINGERS 1,000 ML IV SCH; -LIDOCAINE 1% 20 ML VIAL (10MG/ML) FOR IV START INTRADERMA PRN; +LIDOCAINE 2% INJ 20 MG/ML (2 ML VIAL) ONE; +LIDOCAINE 2% INJ 20 MG/ML INTRATRACH ONE; -MELOXICAM 7.5 MG TAB PO ONE; -ONDANSETRON 4 MG/2 ML VIAL IVP ONE; +PROPOFOL 10 MG/ML 20 ML VIAL IV ONE; -TRANEXAMIC ACID 1,000 MG in SODIUM CHLORIDE 0.9% 50 ML IVPB ONE; -ceFAZolin IN SWFI 2 GM/20 ML SYRINGE IVP ONE; +fentaNYL (PF) 50 MCG/ML 2 ML AMP ONE
[2022-09-17 11:57] VITALS: TEMP 98
[2022-09-17 11:59] LABS: Glucose,Whole Blood 123 mg/dL (70-110)
[2022-09-17 13:24] VITALS: BP 116/63; PULSE 73; RESP 18
--- NOTE | 2022-09-17 13:24 | PCN ---
PROCEDURE NOTE This is a Pulmonary/Critical Care procedure note. PROCEDURES PERFORMED: Bronchoscopy, airway examination, therapeutic lavage, BAL. OPERATORS: Dr. Irby and Dr. Angeles. PREOPERATIVE DIAGNOSES: Bronchiolitis obliterans organizing pneumonia, chronic cough, chronic congestion and secretions. POSTOPERATIVE DIAGNOSES: Bronchiolitis obliterans organizing pneumonia, chronic cough, chronic congestion and secretions. There was informed consent and universal timeout. ANESTHESIA PROVIDED: General anesthesia. DESCRIPTION OF PROCEDURE: The patient's procedure was done in room #1. After the patient was adequately sedated and being fully monitored, the bronchoscope was inserted through the right nostril. It passed through the right nasopharynx into the oropharynx. The hypopharynx was identified and topicalized. The hypopharyngeal structures, including anterior commissure, true cords, false cords, arytenoids, vallecula, epiglottis, and piriform sinuses right and left, appeared normal. The glottic opening was topicalized. The bronchoscope was pushed through the glottic opening into the trachea. 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 There was also some tracheal inflammation. There were some secretions noted throughout the trachea as well. Tracheal tonya was sharp. The right and left mainstem were topicalized. The right upper lobe and its 3 segments, right middle lobe and its 2 segments, right lower lobe and its 5 segments, the left upper lobe proper and its 2 segments, lingula and its 2 segments, and left lower lobe and its 4 segments all had similar findings of diffuse moderate to severe bronchitis, erythema, and hyperemia of the airways, purulent looking secretions, but did not have a dominant mass or tumor. The secretions were suctioned. The bronchoscope was wedged into the right middle lobe. A formal BAL took place. 30 mL of fluid was recovered. It will be sent to the laboratory for analysis. The bronchoscope was withdrawn. The patient was stable throughout the procedure and tolerated the procedure well. There was no immediate complication. MMODL / IJN: [id number] /
[2022-09-18 11:03] LABS: Appearance,BF Hazy
== END ==
LOC: ORWHC2ENDO 11:17
PROVIDERS: ATTEND Internal Medicine Critical Care Medicine
DX: J84.89 Other specified interstitial pulmonary diseases (principal); J39.8 Other specified diseases of upper respiratory tract; J84.9 Interstitial pulmonary disease, unspecified; E78.5 Hyperlipidemia, unspecified; E11.9 Type 2 diabetes mellitus without complications; M06.9 Rheumatoid arthritis, unspecified; Z87.19 Personal history of other diseases of the digestive system; Z79.84 Long term (current) use of oral hypoglycemic drugs; Z79.899 Other long term (current) drug therapy; Z88.1 Allergy status to other antibiotic agents; Z88.5 Allergy status to narcotic agent; Z88.8 Allergy status to other drugs, medicaments and biological substances; Z79.82 Long term (current) use of aspirin; Z79.51 Long term (current) use of inhaled steroids; Z82.0 Family history of epilepsy and other diseases of the nervous system; Z82.3 Family history of stroke; Z96.649 Presence of unspecified artificial hip joint; Z98.890 Other specified postprocedural states
CPT/HCPCS: 88108; 88305; 89050; 87252; 87070; 87205; 87116; 87102; 87206; 31624; J2001 ×2; J3010; J2704

== ENCOUNTER → 2022-10-23 | Outpatient (CLI) | payer MEDICARE ==
--- NOTE | 2022-10-23 17:05 | CT ---
EXAMINATION TYPE: CT chest wo con DATE OF EXAM: 10/23/2022 COMPARISON: 11/14/2021 HISTORY: Cough, interstitial pulmonary disease unspecified CT DLP: 737.40 mGycm High-resolution noncontrast CT of the chest was performed with the patient in the prone and supine po sitions. Lung and mediastinal window settings are submitted. There is scattered subpleural fibrosis noted progressive since prior examination. There are areas of scattered groundglass infiltrates are noted bilaterally which may reflect acute inflammatory or infec tious process. There is evidence of bronchiectasis. 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 The heart is enlarged. Coronary artery luigi cifications seen. Small hiatal hernia. IMPRESSION: 1. Changes of idiopathic pulmonary fibrosis. 2. Scattered areas of groundglass infiltrate may reflect acute inflammatory or infectious process. 3. Bronchiectasis.
== END | disposition home or self-care (01) ==
LOC: RADCTMAIN 16:17
PROVIDERS: ATTEND Internal Medicine Critical Care Medicine
DX: J84.112 Idiopathic pulmonary fibrosis (principal); R91.8 Other nonspecific abnormal finding of lung field; J47.9 Bronchiectasis, uncomplicated
CPT/HCPCS: 71250

== ENCOUNTER → 2023-01-28 | Outpatient (CLI) | payer MEDICARE ==
[2023-01-28 19:38] LABS: Cat Epith & Dander IgE <0.10 kU/L; Cladosporian herbarum IgE <0.10 kU/L; Clam IgE <0.10 kU/L; Cockroach IgE <0.10 kU/L; Dermato. farinae IgE <0.10 kU/L; Maple (Box Elder) IgE <0.10 kU/L; Oak IgE <0.10 kU/L; Scallop IgE <0.10 kU/L; Soybean IgE <0.10 kU/L
[2023-01-28 20:14] LABS: Alternaria alternata IgE <0.10 kU/L; Aspergillus fumagatus IgE <0.10 kU/L; Birch IgE <0.10 kU/L; Codfish IgE <0.10 kU/L; Dog Dander IgE <0.10 kU/L; Egg White IgE <0.10 kU/L; Elm IgE <0.10 kU/L; Peanut IgE <0.10 kU/L; Ragweed,Common IgE <0.10 kU/L; Red Top (Bentgrass) IgE <0.10 kU/L; Shrimp IgE <0.10 kU/L; Walnut IgE (Food) <0.10 kU/L
== END | disposition home or self-care (01) ==
LOC: LABWHC1 11:27
PROVIDERS: ATTEND Internal Medicine Critical Care Medicine
DX: J84.116 Cryptogenic organizing pneumonia (principal)
CPT/HCPCS: 36415; 82785; 85008; 86003

== ENCOUNTER → 2023-02-10 | Outpatient (CLI) | payer MEDICARE ==
--- NOTE | 2023-02-10 14:25 | US ---
EXAMINATION TYPE: US gallbladder DATE OF EXAM: 02/10/2023 COMPARISON: NONE CLINICAL INDICATION: Female, 82 years old with history of R10.11 RIGHT UPPER QUADRANT PAIN; Pain TECHNIQUE: Multiple sonographic images of the right upper quadrant are obtained. FINDINGS: EXAM MEASUREMENTS: Liver Length: 15.7 cm Gallbladder Wall: .2 cm CBD: .5 cm Right Kidney: 10.1 x 3.8 x 3.6 cm CAUSTICS LOADER NOTES: Pancreas: Tail obscured by overlying bowel gas Liver: Increased attenuation Gallbladder: No stones seen Evidence for sonographic Lopez's sign: No CBD: wnl Right Kidney: No hydronephrosis or masses seen The visualized portions of the pancreas are unremarkable. The tail is obscured by overlying bowel gas . Liver demonstrates diffuse increased attenuation without focal lesion. No cholelithiasis, perichole cystic fluid, or wall thickening. Per carpenters supervisor, negative sonographic Lopez sign. The common bile duct within normal limits. The right kidney is unremarkable without evidence of hydronephrosis, mass, or nephrolithiasis. Corticomedullary differentiation is maintained. IMPRESSION: 1. No acute process. 2. Hepatic steatosis.
== END | disposition home or self-care (01) ==
LOC: RADUSWWP 13:56
PROVIDERS: ATTEND Internal Medicine
DX: K76.0 Fatty (change of) liver, not elsewhere classified (principal)
CPT/HCPCS: 76705

== ENCOUNTER 2023-02-14 05:20 | Emergency (ER) | payer MEDICARE ==
[2023-02-14 05:28] VITALS: RESP 18; TEMP 97.9
[2023-02-14] MEDS ORDERED: MAG HYDROX/AL HYDROX/SIMETH 30 ML, HYOSCYAMINE ELIXIR 10 ML, LIDOCAINE 2% GLYDO JELLY 1... PO STA ×3 (05:50)
[2023-02-14] MEDS ORDERED: FAMOTIDINE 20 MG/2 ML VIAL IV STA (05:50)
[2023-02-14] MEDS ORDERED: SODIUM CHLORIDE 0.9% 1,000 ML IV ONE (05:50)
[2023-02-14] MEDS ORDERED: ONDANSETRON 4 MG/2 ML VIAL IVP STA (05:50)
--- NOTE | 2023-02-14 05:55 | ED ---
General Adult HPI - General Chief complaint: Abdominal Pain Stated complaint: Abd pain Time Seen by Provider: 02/14/23 05:33 Source: patient Mode of arrival: ambulatory Limitations: no limitations - History of Present Illness Initial comments: This is an 82-year-old female with a past medical history including diabetes and hyperlipidemia presents emergency department for epigastric abdominal pain. The patient stated this abdominal pain initially started around the umbilicus on Thursday but stated that his progressed and radiated up now to the epigastric region. The patient had her primary care physician order a outpatient ultrasound of her gallbladder and stated that she did not know the results of this. The patient stated that she has not had an appetite the last several days and stated that the abdomen is tender to touch. The patient reported associated nausea without vomiting. The patient also stated that her primary care physician stopped her metformin when she started having pain. The patient denied any other acute pain or complete at this time. The patient denied any fevers and chills. - Related Data Home Medications Medication Instructions Recorded Confirmed Cholecalciferol [Vitamin D3 (25 50 mcg PO DAILY 09/06/15 09/15/22 Mcg = 1000 Iu)] Multivitamin/Iron/Folic Acid 1 tab PO DAILY 09/06/15 09/15/22 [Centrum Complete Multivit Tab] [place]-3 Fatty Acids/Fish Oil [Fish 1 cap PO SUTH 09/06/15 09/15/22 Oil 1,000 mg Softgel] metFORMIN HCL [Glucophage] 500 mg PO QAM 02/19/16 09/15/22 Turmeric Root Extract [Turmeric] 500 mg PO DAILY 08/04/17 09/15/22 Acetaminophen [Tylenol Arthritis] 1,300 mg PO DAILY PRN 09/15/22 09/15/22 Aspirin 81 mg PO DAILY 09/15/22 09/15/22 Biotin [Biotin Disolve] 2,500 mcg PO DAILY 09/15/22 09/15/22 Calcium Carbonate/Vitamin D3 1 each PO MOTH 09/15/22 09/15/22 [Caltrate 600 Plus D3 20 Mcg (800 Iu)] Cetirizine HCl [Zyrtec] 10 mg PO DAILY 09/15/22 09/15/22 Fluticasone Nasal [place] [Flonase 1 spray EA NOSTRIL BID 09/15/22 09/15/22 Nasal [place]] Latanoprost [Latanoprost 0.005%] 1 drop BOTH EYES HS 09/15/22 09/15/22 Rosuvastatin Calcium 5 mg PO DAILY 09/15/22 09/15/22 metFORMIN HCL 1,000 mg PO 1700 09/15/22 09/15/22 Previous Rx's Medication Instructions Recorded Famotidine [Pepcid] 20 mg PO BID #30 tablet 02/14/23 Mag Hydrox/Al Hydrox/Simeth 30 ml PO BID #300 ml 02/14/23 [Maalox] Allergies Allergy/AdvReac Type Severity Reaction Status Date / Time etodolac [From Lodine] AdvReac bowel Verified 09/17/22 11:39 probems leflunomide AdvReac stomach Verified 09/17/22 11:39 problems levofloxacin [From Levaquin] AdvReac stomach Verified 09/17/22 11:39 problems methotrexate AdvReac lung Verified 09/17/22 11:39 problems Review of Systems ROS Statement: Those systems with pertinent positive or pertinent negative responses have been documented in the HPI. ROS Other: All systems not noted in ROS Statement are negative. 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, rheumatoid arthritis-remission 2016, IBS, diverticulosis History of Any Multi-Drug Resistant Organisms: None Reported Past Surgical History: Adenoidectomy, Section, Joint Replacement, Tonsillectomy Additional Past Surgical History / Comment(s): lung biopsy,left hip replacement Past Anesthesia/Blood Transfusion Reactions: No Reported Reaction Additional Past Anesthesia/Blood Transfusion Reaction / Comment(s): no hx blood transfusion Past Psychological History: No Psychological Hx Reported Smoking Status: Never smoker - Past Family History Mother Family Medical History: Diabetes Mellitus General Exam Limitations: no limitations General appearance: alert, in no apparent distress Head exam: Present: atraumatic, normocephalic, normal inspection Eye exam: Present: normal appearance, PERRL Pupils: Present: normal accommodation ENT exam: Present: normal exam, normal oropharynx, mucous membranes moist Neck exam: Present: normal inspection, full ROM Respiratory exam: Present: normal lung sounds bilaterally Cardiovascular Exam: Present: regular rate, normal rhythm, normal heart sounds GI/Abdominal exam: Present: soft, tenderness (TTP to the epigastric region), normal bowel sounds Extremities exam: Present: normal inspection, full ROM Back exam: Present: normal inspection, full ROM Neurological exam: Present: alert, oriented X3, CN II-XII intact Psychiatric exam: Present: normal affect, normal mood Skin exam: Present: warm, dry Course Vital Signs 02/14/23 05:25 Temperature 97.9 F Pulse Rate 89 Respiratory 18 Rate Blood Pressure 157/91 O2 Sat by Pulse 97 Oximetry Medical Decision Making - Medical Decision Making Was pt. sent in by a medical professional or institution (, PA, TIRE MOUNTER, urgent care, hospital, or snf...) When possible be specific @ -No Did you speak to anyone other than the patient for history (EMS, parent, family, police, friend...)? What history was obtained from this source @ -No Did you review nursing and triage notes (agree or disagree)? Why? @ -I reviewed and agree with nursing and triage notes Were old charts reviewed (outside hosp., previous admission, EMS record, old EKG, old radiological studies, urgent care reports/EKG's, snf records)? Report findings @ -No old charts were reviewed Differential Diagnosis (chest pain, altered mental status, abdominal pain women, abdominal pain men, vaginal bleeding, weakness, fever, dyspnea, syncope, headache, dizziness, GI bleed, back pain, seizure, CVA, palpatations, mental health)? @ -Gastroenteritis, peptic ulcer disease, diverticulitis EKG interpreted by me (3pts min.). @ -None X-rays interpreted by me (1pt min.). @ -None done CT interpreted by me (1pt min.). @ -CT of the abdomen and pelvis with IV contrast was obtained and was interpreted by myself showing inflammatory changes and wall thickening involving the gastric antrum and proximal duodenum consistent with gastritis. There was hepatic steatosis. There was colonic diverticulosis without evidence for diver ticulitis. U/S interpreted by me (1pt. min.). @ -None done What testing was considered but not performed or refused? (CT, X-rays, U/S, labs)? Why? @ -None What meds were considered but not given or refused? Why? @ -None Did you discuss the management of the patient with other professionals (professionals i.e. , PA, TIRE MOUNTER, lab, RT, psych nurse, psych social worker, director of retail analytics, teacher, surveillance sensor officer, director case management)? Give summary @ -No Was smoking cessation discussed for >3mins.? @ -No Was critical care preformed (if so, how long)? @ -No Were there social determinants of health that impacted care today? How? (Homelessness, low income, unemployed, alcoholism, drug addiction, transportation, low edu. Level, literacy, decrease access to med. care, [facility], rehab)? @ -No Was there de-escalation of care discussed even if they declined (Discuss DNR or withdrawal of care, Hospice)? DNR status @ -No What co-morbidities impacted this encounter? (DM, HTN, Smoking, COPD, CAD, Cancer, CVA, ARF, Chemo, Hep., AIDS, mental health diagnosis, sleep apnea, morbid obesity)? @ -Hypertension, diabetes Was patient admitted / discharged? Hospital course, mention meds given and route, prescriptions, significant lab abnormalities, going to OR and other pertinent info. @ -The patient was seen and evaluated in emergency department. Physical exam, the patient was resting in bed in minimal distress secondary to abdominal pain. The patient had normal vital signs on arrival and due to the patient's continued epigastric abdominal pain and tenderness, laboratory workup was obtained as well as a CT abdomen and pelvis. Laboratory workup was significant for hyponatremia but was otherwise within normal limits. The patient was given normal saline fluid for her hyponatremia advised to increase her salt intake. The patient had no concerning signs of altered mental status for her hyponatremia and on reevaluation had significant improvement to her pain. The patient likely had gastritis as a cause of her symptoms and was given a prescription for Maalox as well as Pepcid to be taken at home. The patient was agreeable to this [place] t answered appropriate. The patient was discharged home in stable condition. The patient was also advised to follow-up with her primary care physician for continued evaluation and to report back to the emergency department should worsening pain or distress. Undiagnosed new problem with uncertain prognosis? @ -No Drug Therapy requiring intensive monitoring for toxicity (Heparin, Nitro, Insulin, Cardizem)? @ -No Were any procedures done? @ -No Diagnosis/symptom? @ -Gastroenteritis, NOS Acute, or Chronic, or Acute on Chronic? @ -Acute Uncomplicated (without systemic symptoms) or Complicated (systemic symptoms)? @ -Uncomplicated Side effects of treatment? @ -No Exacerbation, Progression, or Severe Exacerbation? @ -No Poses a threat to life or bodily function? How? (Chest pain, [place], [place], pneumonia, PE, COPD, DKA, ARF, appy, cholecystitis, CVA, Diverticulitis, Homicidal, Suicidal, threat to staff... and all critical care pts) @ -No - Lab Data Result diagrams: 02/14/23 05:45 02/14/23 05:45 Lab Results 02/14/23 02/14/23 02/14/23 Range/Units 05:45 05:45 05:50 WBC 9.1 (3.8-10.6) k/uL RBC 4.86 (3.80-5.40) m/uL Hgb 15.3 (11.4-16.0) gm/dL Hct 43.0 (34.0-46.0) % MCV 88.6 (80.0-100.0) fL MCH 31.4 (25.0-35.0) pg MCHC 35.5 (31.0-37.0) g/dL RDW 12.4 (11.5-15.5) % Plt Count 213 (150-450) k/uL MPV 7.7 Neutrophils % 59 % Lymphocytes % 29 % Monocytes % 7 % Eosinophils % 2 % Basophils % 0 % Neutrophils # 5.4 (1.3-7.7) k/uL Lymphocytes # 2.7 (1.0-4.8) k/uL Monocytes # 0.7 (0-1.0) k/uL Eosinophils # 0.2 (0-0.7) k/uL Basophils # 0.0 (0-0.2) k/uL Sodium 123 L (137-145) mmol/L Potassium 3.8 (3.5-5.1) mmol/L Chloride 92 L (98-107) mmol/L Carbon Dioxide 19 L (22-30) mmol/L Anion Gap 12 mmol/L BUN 7 (7-17) mg/dL Creatinine 0.41 L (0.52-1.04) mg/dL Est GFR (CKD-EPI)AfAm >90 (>60 ml/min/1.73 sqM) Est GFR (CKD-EPI)NonAf >90 (>60 ml/min/1.73 sqM) Glucose 144 H (74-99) mg/dL Calcium 9.1 (8.4-10.2) mg/dL Magnesium 1.6 (1.6-2.3) mg/dL Total Bilirubin 0.8 (0.2-1.3) mg/dL AST 23 (14-36) U/L ALT 20 (4-34) U/L Alkaline Phosphatase 86 (38-126) U/L Total Protein 7.2 (6.3-8.2) g/dL Albumin 4.6 (3.5-5.0) g/dL Lipase 84 (23-300) U/L Urine Color Light Yellow Urine Appearance Clear (Clear) Urine pH 6.0 (5.0-8.0) Ur Specific [place] 1.013 (1.001-1.035) Urine Protein Negative (Negative) Urine Glucose (UA) Negative (Negative) Urine Ketones 2+ H (Negative) Urine Blood Small H (Negative) Urine Nitrite Negative (Negative) Urine Bilirubin Negative (Negative) Urine Urobilinogen <2.0 (<2.0) mg/dL Ur Leukocyte Esterase Trace H (Negative) Urine RBC 16 H (0-5) /hpf Urine WBC 4 (0-5) /hpf Urine Mucus Occasional H (None) /hpf Disposition Clinical Impression: Gastroenteritis Disposition: HOME SELF-CARE Condition: Stable Instructions (If sedation given, give patient instructions): Gastroenteritis (DC) Prescriptions: Mag Hydrox/Al Hydrox/Simeth [Maalox] 30 ml PO BID #300 ml Famotidine [Pepcid] 20 mg PO BID #30 tablet Is patient prescribed a controlled substance at d/c from ED?: No Referrals: Germaine Mora MD [Primary Care Provider] - 1-2 days Time of Disposition: 06:30
[2023-02-14 06:17] LABS: ALT 20 U/L (4-34); AST 23 U/L (14-36); African American GFR (CKD) >90 (>60 ml/min/1.73 sqM); Albumin 4.6 g/dL (3.5-5.0); Alkaline Phosphatase 86 U/L (38-126); Anion Gap 12 mmol/L; Blood Urea Nitrogen 7 mg/dL (7-17); Calcium 9.1 mg/dL (8.4-10.2); Carbon Dioxide 19 mmol/L (22-30); Chloride 92 mmol/L (98-107); Glucose 144 mg/dL (74-99); Lipase 84 U/L (23-300); Magnesium 1.6 mg/dL (1.6-2.3); Non-African American GFR(CKD) >90 (>60 ml/min/1.73 sqM); Potassium 3.8 mmol/L (3.5-5.1); Sodium 123 mmol/L (137-145); Total Bilirubin 0.8 mg/dL (0.2-1.3); Total Protein 7.2 g/dL (6.3-8.2)
[2023-02-14 06:21] LABS: Basophils % (A) 0 %; Eosinophils # (A) 0.2 k/uL (0-0.7); Eosinophils % (A) 2 %; HGB 15.3 gm/dL (11.4-16.0); Lymphocytes # (A) 2.7 k/uL (1.0-4.8); Lymphocytes % (A) 29 %; MCH 31.4 pg (25.0-35.0); MCHC 35.5 g/dL (31.0-37.0); MCV 88.6 fL (80.0-100.0); Mean Platelet Volume 7.7; Monocytes # (A) 0.7 k/uL (0-1.0); Monocytes % (A) 7 %; Neutrophils # (A) 5.4 k/uL (1.3-7.7); Neutrophils % (A) 59 %; Platelet Count 213 k/uL (150-450); RBC 4.86 m/uL (3.80-5.40); RDW 12.4 % (11.5-15.5); WBC 9.1 k/uL (3.8-10.6)
[2023-02-14 06:22] LABS: Appearance,Urine Clear (Clear); Bilirubin,Urine Negative (Negative); Blood,Urine Small (Negative); Color,Urine Light Yellow; Glucose,Urine (UA) Negative (Negative); Ketones,Urine 2+ (Negative); Leukocyte Esterase,Urine Trace (Negative); Mucus,Urine Occasional /hpf; Nitrite,Urine Negative (Negative); Protein,Urine Negative (Negative); RBC,Urine 16 /hpf (0-5); Specific Gravity,Urine 1.013 (1.001-1.035); Urobilinogen,Urine <2.0 mg/dL (<2.0); WBC,Urine 4 /hpf (0-5)
--- NOTE | 2023-02-14 06:56 | CT ---
EXAMINATION TYPE: CT abdomen pelvis w con CT DLP: 978.8 mGycm, Automated exposure control for dose reduction was used. DATE OF EXAM: 02/14/2023 6:44 AM COMPARISON: Gallbladder ultrasound 02/10/2023 CLINICAL INDICATION:Female, 82 years old with history of Acute abdominal pain; abd pain TECHNIQUE: Standard CT of the abdomen and pelvis following the administration of 100 cc of Isovue 3 00 IV contrast material. Coronal and sagittal reformats were performed. FINDINGS: LOWER CHEST: Posterior dependent subsegmental atelectasis is noted. Mild cardiomegaly. No pericardial effusion. Aortic valvular and mitral annulus calcifications. Small coronary arterial calcifications. ABDOMEN LIVER: Diffusely hypoattenuating parenchyma. GALLBLADDER AND BILE DUCTS: Unremarkable. PANCREAS: Unremarkable. SPLEEN: Unremarkable. ADRENAL GLANDS: Unremarkable. KIDNEYS AND URETERS: No evidence of hydronephrosis or renal calculus. The kidneys enhance symmetrical ly. Bilateral extrarenal pelvises. Contrast is demonstrated within both collecting systems on the del ayed phase. PELVIS BLADDER: Unremarkable REPRODUCTIVE: Unremarkable. ABDOMEN & PELVIS STOMACH AND BOWEL: Circumferential wall thickening with surrounding fashioning involving the gastric antrum and proximal duodenum. Small hiatal hernia. Distal colonic diverticulosis without evidence for acute diverticulitis. No evidence of bowel obstruction. PERITONEUM: No evidence of pneumoperitoneum or free fluid. VASCULATURE: Moderate atherosclerotic calcifications are present throughout the abdominal aorta and i ts branches. No evidence of aortic aneurysm. MUSCULOSKELETAL: No acute osseous abnormalities. Moderate disc degeneration changes are present throu ghout the thoracolumbar spine.. Mild retrolisthesis of L3 on L4. Postsurgical changes from left total hip arthroplasty. LYMPH NODES: No gross evidence for lymphadenopathy. SOFT TISSUE/ABDOMINAL WALL: Unremarkable IMPRESSION: 1. Inflammatory changes and wall thickening involving the gastric antrum and proximal duodenum consi stent with gastroenteritis. 2. Hepatic steatosis. 3. Colonic diverticulosis without evidence for acute diverticulitis. 4. Small hiatal hernia.
[2023-02-14 07:17] VITALS: BP 137/85; PULSE 80
== END 2023-02-14 07:17 | disposition home or self-care (01) ==
LOC: EC 05:20
DX: K52.9 Noninfective gastroenteritis and colitis, unspecified (principal); E78.5 Hyperlipidemia, unspecified; E11.9 Type 2 diabetes mellitus without complications; M06.9 Rheumatoid arthritis, unspecified; M19.90 Unspecified osteoarthritis, unspecified site; Z88.1 Allergy status to other antibiotic agents; Z88.8 Allergy status to other drugs, medicaments and biological substances; Z79.84 Long term (current) use of oral hypoglycemic drugs; Z79.82 Long term (current) use of aspirin; Z79.51 Long term (current) use of inhaled steroids; Z79.899 Other long term (current) drug therapy
CPT/HCPCS: 36415; 80053; 83690; 83735; 85025; 81001; 74177; 99284; 96374; 96375; 96361; J2405; Q9967

== ENCOUNTER → 2023-03-05 | Outpatient (CLI) | payer MEDICARE ==
--- NOTE | 2023-03-05 16:15 | NM ---
EXAMINATION TYPE: NM hepatobiliary w EF DATE OF EXAM: 03/05/2023 COMPARISON: CT 02/14/2023 CLINICAL INDICATION: Female, 82 years old with history of R1011 RT UPPER QUAD PAIN; TECHNIQUE: After the intravenous administration of 5.18 mCi Tc 99m Mebrofenin hepatobiliary scintigra phy is performed. Immediate images post injection. FINDINGS: There is satisfactory initial accumulation of tracer by the liver. The gallbladder is visualized wit hin 32 minutes. The small bowel activity is noted within 10 minutes. At one hour 8 ounces of oral e nsure plus is given to mimic CCK and gallbladder ejection fraction is calculated at 36 %, in the norm al range. IMPRESSION: No scintigraphic evidence for acute cholecystitis. Gallbladder ejection fraction is at th e lower end of the normal range at 36%.
== END | disposition home or self-care (01) ==
LOC: RADNMMAIN 12:17
PROVIDERS: ATTEND Internal Medicine
DX: R10.11 Right upper quadrant pain (principal)
CPT/HCPCS: 78226; A9537

== ENCOUNTER → 2023-04-24 | Outpatient (CLI) | payer MEDICARE ==
--- NOTE | 2023-04-24 10:07 | XR ---
EXAMINATION TYPE: XR chest 2V DATE OF EXAM: 04/24/2023 10:00 AM COMPARISON: Chest radiographs from 07/10/2022, CT chest 10/23/2022 TECHNIQUE: XR chest 2V Frontal and lateral views of the chest. CLINICAL INDICATION:Female, 83 years old with history of J84.9 ILD; FINDINGS: Lungs/Pleura: There is no evidence of pleural effusion, focal consolidation, or pneumothorax. Chroni c bibasilar interstitial lung markings. Hyperinflation. Pulmonary vascularity: Unremarkable. Heart/mediastinum: Cardiomediastinal silhouette is enlarged and stable. Atherosclerotic calcificatio ns are seen in the aorta. Musculoskeletal: Multiple level degenerative disc disease changes seen throughout the spine. IMPRESSION: Redemonstration of bibasilar pulmonary fibrotic changes without evidence for acute process.
== END | disposition home or self-care (01) ==
LOC: RADXRMAIN 09:41
PROVIDERS: ATTEND Internal Medicine
DX: J84.9 Interstitial pulmonary disease, unspecified (principal)
CPT/HCPCS: 71046

== ENCOUNTER → 2023-05-01 | Outpatient (CLI) | payer MEDICARE ==
--- NOTE | 2023-05-04 08:59 | MM ---
Reason for Exam: Screening (asymptomatic). Last mammogram was performed 1 year(s) and 1 month(s) ago. Patient History: Menarche at age 12. First Full-Term at age 23. Postmenopausal. Estrogen for 2 years from age 50 until age 52. 05/17/2015, Benign Core Biopsy on the right side. 05/17/2015, Benign Core Biopsy on the right side. 12/18/2006, Benign Core Biopsy on the left side. Maternal aunt had breast cancer, age 60. Maternal aunt had breast cancer, age 80. Mother had breast cancer, age 42. Risk Values: Kelley 5 year model risk: 4.3%. NCI Lifetime model risk: 5.2%. Prior Study Comparison: 01/03/2020 Bilateral Screening Mammogram, [facility]. 02/26/2021 Bilateral Screening Mammogram, [facility]. 04/04/2022 Bilateral MG 3D screening mammo w/cad, [facility]. Tissue Density: The breast tissue is heterogeneously dense. This may lower the sensitivity of mammography. Findings: Analyzed By CAD. Bilateral breast biopsy clips. There is no suspicious group of microcalcifications or new suspicious mass. Overall Assessment: Benign, BI-RAD 2 Management: Screening Mammogram of both breasts in [address] [facility] will attempt to contact patient to return for supplemental views and ultrasound if indicated. Patient should continue monthly self-breast exams. A clinical breast exam by your physician is recommended on an annual basis. This exam should not preclude additional follow-up of suspicious palpable abnormalities. Note on Kelley scores and lifetime risk: 1. A Kelley score greater than 3% is considered moderate risk. If this is the case, consider specialist referral to assess eligibility for a risk reducing agent. 2. If overall lifetime risk for the development of breast cancer is 20% or higher, the patient may qualify for future screening with alternating mammogram and breast MRI. Electronically signed and approved by: Tha Lane DO
== END | disposition home or self-care (01) ==
LOC: RADMAMWWP 13:01
PROVIDERS: ATTEND Internal Medicine
DX: Z12.31 Encounter for screening mammogram for malignant neoplasm of breast (principal); Z78.0 Asymptomatic menopausal state; Z80.3 Family history of malignant neoplasm of breast
CPT/HCPCS: 77063; 77067

== ENCOUNTER → 2023-07-03 | Outpatient (CLI) | payer MEDICARE ==
--- NOTE | 2023-07-05 12:07 | BD ---
EXAMINATION TYPE: Axial Bone Density DATE OF EXAM: 07/03/2023 CLINICAL HISTORY: 83 years old Female. ICD-10 CODE: M85.851 OTH DISRD OF BONE DENSITY AND STRUCTURE, R Height: 63 Weight: 156.9 FRAX RISK QUESTIONS: Alcohol (3 or more units per day): no Family History (Parent hip fracture): no Glucocorticoids (More than 3mos): no (Ex: prednisone, prednisolone, methylprednisolone, dexamethasone, and hydrocortisone). History of Fracture in Adulthood: yes Secondary Osteoporosis: 1. Type 1 Diabetes: no 2. Hyperthyroidism: no 3. Menopause before 45: no 4. Malnutrition: no 5. Chronic liver disease: no Rheumatoid Arthritis: no Current Tobacco Use: no RISK FACTORS HISTORY OF: Surgery to Spine/Hip(right/left)/Wrist (right/left): left hip replacement When: 2006 Additional History: EXAM MEASUREMENTS: Bone mineral densitometry was performed using the [employer] System. Bone mineral density as measured about the Lumbar spine is: ----- L1-L4(G/cm2): 1.407 T Score Values are as follows: ----- L1: 0.7 ----- L2: 0.8 ----- L3: 2.3 ----- L4: 3.2 ----- L1-L4: 1.9 Z Score Values are as follows: ----- L1: 2.4 ----- L2: 2.5 ----- L3: 4.0 ----- L4: 4.9 ----- L1-L4: 3.6 Bone mineral density has: decreased -0.8% since study of: 01.03.2020 Bone mineral density about the R hip (g/cm2): 1.030 T Score values are as follows: -----R Neck: -0.4 -----R Total: 1.8 Z Score values are as follows: -----R Neck: 0.2 -----R Total: 2.2 Bone mineral density has: decreased -5.0 % since study of: 01.03.2020 FRAX%s: The graph provided illustrates a 14.1% chance for a major osteoporotic fx and a 2.2 % chance for the hips probability for fx in 10 years time. IMPRESSION: Normal (Values between +1 and -1 indicate normal bone mass). Consider repeating this study in 5 year s or sooner if there is some new clinical indication. NOTE: T-SCORE=SD OF THE YOUNG ADULT MEAN.
== END | disposition home or self-care (01) ==
LOC: RADBDWWP 10:56
PROVIDERS: ATTEND Internal Medicine
DX: M85.851 Other specified disorders of bone density and structure, right thigh (principal)
CPT/HCPCS: 77080

== ENCOUNTER → 2023-07-28 | Outpatient (CLI) | payer MEDICARE ==
--- NOTE | 2023-07-28 12:02 | CT ---
CLINICAL INDICATION:Female, 83 years old with history of J84.9 INTERSTITIAL PULMONARY DISEASE, UNSPEC IFIED; PHH, Interstitial Pulmonary Disease, Unspecified INDICATION: Patient age:Female; 83 years old; Reason for study: J84.9 INTERSTITIAL PULMONARY DISEASE, UNSPECIFIED; PHH. COMPARISON: CT chest 10/23/2022 TECHNIQUE: Multiple thin axial images were obtained through the chest at selected intervals. Prone and supine in spiratory along with supine expiratory images were submitted for review. Please note that due to inte rval acquisition images as defined by high-resolution CT protocol the entire lung parenchyma is not e valuated, therefore small nodular densities may not be visualized. Evaluation of vascular structures , viscera and lymphatics is limited due to lack of intravenous contrast administration. One or more C T dose reduction strategies were utilized during this examination. Total DLP 223 mGycm. FINDINGS: LUNGS: A progression of scattered subpleural fibrosis from prior exam. New regions of scattered groun dglass infiltrates bilaterally. Bronchiectasis redemonstrated. Scattered nodular parenchymal densitie s seen but there is a calcification likely related to prior asbestosis exposure. Increase in patchy g roundglass mosaic attenuation throughout the lungs on expiratory phase. No honeycombing is identified . LARGE AIRWAYS: Central airways are patent. No dynamic airway collapse on expiratory imaging. PLEURA: No pleural effusion or thickening. HEART AND PERICARDIUM: The heart is mildly enlarged. There is no pericardial effusion. Moderate coron lazarus artery calcifications present. MEDIASTINUM AND LAURIE: No mediastinal or hilar lymphadenopathy or soft tissue mass. VESSELS: Moderate atherosclerotic changes of the thoracic aorta. CHEST WALL AND DIAPHRAGM: Normal. LOWER NECK: Normal. UPPER ABDOMEN: Small hiatal hernia MUSCULOSKELETAL: No acute fracture. Bilateral shoulder arthropathy. IMPRESSION: 1. Progression of idiopathic pulmonary fibrosis from prior exam. 2. New scattered areas of groundglass infiltrate which may reflect acute inflammatory or infectious p rocess. 3. Bronchiectasis.
== END | disposition home or self-care (01) ==
LOC: RADCTMAIN 11:20
PROVIDERS: ATTEND Internal Medicine Critical Care Medicine
DX: J84.112 Idiopathic pulmonary fibrosis (principal); J47.9 Bronchiectasis, uncomplicated; R91.8 Other nonspecific abnormal finding of lung field; J84.9 Interstitial pulmonary disease, unspecified
CPT/HCPCS: 71250

== ENCOUNTER → 2023-08-19 | Day surgery (SDC) | payer MEDICARE ==
[2023-08-17 15:16] VITALS: BMI 26.4
[~2023-08-19] MED LIST changes: -ATROPINE SULFATE 0.4 MG/ML 1 ML VIAL IM ONE; -LACTATED RINGERS 1,000 ML IV SCH; +LIDOCAINE 1% (10MG/ML) FOR IV START INTRADERMA PRN; -LIDOCAINE 2% INJ 20 MG/ML (2 ML VIAL) ONE; -LIDOCAINE 2% INJ 20 MG/ML INTRATRACH ONE; -fentaNYL (PF) 50 MCG/ML 2 ML AMP ONE
[2023-08-19] MEDS: LACTATED RINGERS 1,000 ML IV SCH (09:24)
[2023-08-19 09:27] LABS: Glucose,Whole Blood 151 mg/dL (70-110)
[2023-08-19 09:30] VITALS: TEMP 98.5
--- NOTE | 2023-08-19 10:00 | P.PCN ---
Date of Procedure: 08/19/23 Procedure(s) Performed: BRIEF HISTORY: Patient is a 83-year-old pleasant female scheduled for an elective colonoscopy as a part of screening for colon cancer/positive cologuard. PROCEDURE PERFORMED: Colonoscopy with snare polypectomy. PREOPERATIVE DIAGNOSIS: Screening for colon cancer/positive cologuard.. IV sedation per Anesthesia. PROCEDURE: After informed consent was obtained, the patient, was brought into the endoscopy unit. IV sedation was administered by Anesthesia under continuous monitoring. Digital rectal examination was normal. Initially the Olympus CF-160 flexible video colonoscope was then inserted in the rectum, gradually advanced into the cecum without any difficulty. Careful examination was performed as the scope was gradually being withdrawn. Ileocecal valve and the appendiceal orifice were visualized and appeared normal. Prep was excellent. Mucosa of the cecum, ascending colon, appeared normal. The proximal transverse colon there was a 5 mm sessile polyp removed by cold snare polypectomy. Moderate sigmoid diverticula cyst. Rest of the transverse colon, descending colon, sigmoid colon, and rectum appeared normal. Retroflexion was performed in the rectum and no lesions were seen. The patient tolerated the procedure well. IMPRESSION: 5 mm transverse colon polyp status post cold snare polypectomy Moderate left sided diverticulosis RECOMMENDATIONS: Findings of this examination were discussed with the patient as well as a family. She was advised to follow with the biopsy results. Intermittent a high-fiber diet and fiber supplements on a regular basis..
[2023-08-19 10:23] LABS: Glucose,Whole Blood 111 mg/dL (70-110)
[2023-08-19 10:33] VITALS: BP 135/68; PULSE 71; RESP 14
== END ==
LOC: ORWHC2ENDO 08:26
PROVIDERS: ATTEND Internal Medicine Gastroenterology
DX: D12.3 Benign neoplasm of transverse colon (principal); K57.30 Diverticulosis of large intestine without perforation or abscess without bleeding; E78.5 Hyperlipidemia, unspecified; E11.9 Type 2 diabetes mellitus without complications; F17.200 Nicotine dependence, unspecified, uncomplicated; Z79.899 Other long term (current) drug therapy; Z98.890 Other specified postprocedural states; Z98.891 History of uterine scar from previous surgery
CPT/HCPCS: 88305; 45385; J2704

== ENCOUNTER 2023-12-23 08:10 | Day surgery (SDC) | payer MEDICARE ==
[2023-12-18 15:34] VITALS: BMI 27.3
[~2023-12-23 08:10] MED LIST changes: -PROPOFOL 10 MG/ML 20 ML VIAL IV ONE
[2023-12-23] MEDS: IV FLUID CONTINUATION 1,000 ML IV ONE ×2 (08:20→09:01)
[2023-12-23] MEDS: LACTATED RINGERS 1,000 ML IV SCH (08:24)
[2023-12-23 08:34] VITALS: TEMP 96.9
[2023-12-23 08:45] LABS: Glucose,Whole Blood 128 mg/dL (70-110)
[2023-12-23] MEDS ORDERED: PROPOFOL 10 MG/ML 20 ML VIAL IV ONE (09:07)
--- NOTE | 2023-12-23 09:17 | P.PCN ---
Date of Procedure: 12/23/23 Procedure(s) Performed: BRIEF HISTORY: Patient is a 83-year-old, pleasant, white female scheduled for upper endoscopy as a part evaluation of intermittent episodes of solid food dysphagia for the last 2 years duration. She had 4 episodes of fall and each time it lasted for 30 minutes and symptoms resolved. PROCEDURE PERFORMED: Esophagogastroduodenoscopy Dilation. PREOPERATIVE DIAGNOSIS: Intermittent dysphagia to solids for the last 2 years duration. IV sedation per anesthesia. PROCEDURE: After informed consent was obtained, the patient was brought into the endoscopy unit. IV sedation was administered by Anesthesia under continuous monitoring. Initially the Olympus GIF-140 video endoscope was inserted into the mouth. Esophagus intubated without any difficulty. It was gradually advanced into the stomach and duodenum and carefully examined. The bulb and the second part of the duodenum appeared normal. The scope at this time was withdrawn to the stomach, adequately insufflated with air, and upon careful examination, mucosa of the antrum, body, cardia and the fundus appeared normal. The scope was then withdrawn into the esophagus. The GE junction was located at 39 cm from the incisors. Widely patent distal esophageal Schatzki's ring identified that was dilated using 18 to 20 mm TTS balloon for 60 seconds. In the distal esophagus there was a superficial erosion consistent with LA grade B reflux esophagitis. The rest of the esophagus appeared normal. Biopsies were done from the distal esophagus and the patient tolerated the procedure well. IMPRESSION: 1. Distal esophageal Schatzki's ring s/p balloon dilation 18 to 20 mm TTS balloon as described above. 2. Superficial erosion at the GE junction consistent with LA grade B reflux esophagitis. RECOMMENDATIONS: The findings of this examination were discussed with the patient and family. She was advised to follow-up with the biopsy results. Recommend healthy liquid diet for 2 hours. Recommended trial of omeprazole 20 mg daily for 3 months for reflux esophagitis. She was advised to follow-up in the office if needed.
[2023-12-23 09:38] VITALS: BP 113/76; PULSE 77; RESP 17
== END 2023-12-23 09:58 | disposition home or self-care (01) ==
LOC: ORWHC2ENDO 08:10
PROVIDERS: ATTEND Internal Medicine Gastroenterology
DX: K22.2 Esophageal obstruction (principal); K22.10 Ulcer of esophagus without bleeding; K21.00 Gastro-esophageal reflux disease with esophagitis, without bleeding; E11.69 Type 2 diabetes mellitus with other specified complication; E78.5 Hyperlipidemia, unspecified; Z88.1 Allergy status to other antibiotic agents; Z88.6 Allergy status to analgesic agent; Z88.8 Allergy status to other drugs, medicaments and biological substances; Z79.84 Long term (current) use of oral hypoglycemic drugs; Z79.899 Other long term (current) drug therapy; Z79.51 Long term (current) use of inhaled steroids
CPT/HCPCS: 88305; 43239; 43249; J2704; C1726

== ENCOUNTER → 2024-05-23 | Outpatient (CLI) | payer MEDICARE ==
--- NOTE | 2024-05-24 08:19 | MM ---
Reason for Exam: Screening (asymptomatic). Last screening mammogram was performed 12 month(s) ago. Patient History: Menarche at age 12. First Full-Term at age 23. Postmenopausal. Estrogen for 2 years from age 50 until age 52. 05/17/2015, Benign Core Biopsy on the right side. 05/17/2015, Benign Core Biopsy on the right side. 12/18/2006, Benign Core Biopsy on the left side. Maternal aunt had breast cancer, age 60. Maternal aunt had breast cancer, age 80. Mother had breast cancer, age 42. Risk Values: Kelley 5 year model risk: 4.0%. NCI Lifetime model risk: 4.5%. Prior Study Comparison: 02/26/2021 Bilateral Screening Mammogram, [facility]. 04/04/2022 Bilateral MG 3D screening mammo w/cad, [facility]. 05/01/2023 Bilateral MG 3D screening mammo w/cad, [facility]. Tissue Density: The breasts are heterogeneously dense, which may obscure small masses. Findings: Analyzed By CAD. There is no suspicious group of microcalcifications or new suspicious mass in either breast. Prior biopsy clips noted in the right breast. Benign-appearing calcifications. Surgical clip from prior biopsy left breast. Overall Assessment: Benign, BI-RAD 2 Management: Screening Mammogram of both breasts in 1 year. . Patient should continue monthly self-breast exams. A clinical breast exam by your physician is recommended on an annual basis. This exam should not preclude additional follow-up of suspicious palpable abnormalities. Note on Kelley scores and lifetime risk: 1. A Kelley score greater than 3% is considered moderate risk. If this is the case, consider specialist referral to assess eligibility for a risk reducing agent. 2. If overall lifetime risk for the development of breast cancer is 20% or higher, the patient may qualify for future screening with alternating mammogram and breast MRI. [facility], , 05/24/2024 8:16 AM. Electronically signed and approved by: Zac Leiva M.D. Radiologis
== END | disposition home or self-care (01) ==
LOC: RADMAMWWP 12:24
PROVIDERS: ATTEND Internal Medicine
DX: Z12.31 Encounter for screening mammogram for malignant neoplasm of breast (principal); Z78.0 Asymptomatic menopausal state; Z80.3 Family history of malignant neoplasm of breast; R92.333 Mammographic heterogeneous density, bilateral breasts
CPT/HCPCS: 77063; 77067

== ENCOUNTER → 2024-08-31 | Outpatient (CLI) | payer MEDICARE ==
--- NOTE | 2024-08-31 12:02 | XR ---
EXAMINATION TYPE: XR abdomen 2V DATE OF EXAM: 08/31/2024 COMPARISON: CT abdomen and pelvis 02/14/2023 HISTORY: Microscopic hematuria TECHNIQUE: Single supine image of the abdomen is obtained FINDINGS: No air-fluid levels or small bowel dilatation. Mild amount stool is present within the left colon. No convincing evidence for pneumoperitoneum. No unusual calcifications. Calcification of the splenic artery within the left upper quadrant. The lung bases are clear. Cardiomegaly. The osseous structures are intact. Postsurgical changes from left hip arthroplasty. Multilevel degene rative changes of the visualized spine. IMPRESSION: Overall nonobstructive bowel gas pattern. [facility], , 08/31/2024 12:00 PM
== END | disposition home or self-care (01) ==
LOC: RADXRMAIN 11:29
PROVIDERS: ATTEND Internal Medicine
DX: R31.29 Other microscopic hematuria (principal)
CPT/HCPCS: 74019

== ENCOUNTER → 2024-09-06 | Outpatient (CLI) | payer MEDICARE ==
--- NOTE | 2024-09-06 11:22 | CT ---
EXAMINATION TYPE: CT chest wo con DATE OF EXAM: 09/06/2024 11:00 AM COMPARISON: Chest radiograph from 07/28/2023 and dating back to 06/12/2015 CLINICAL INDICATION: Female, 84 years old with history of J84.9 INTERSTITIAL PULMONARY DISEASE, UNSPE CIFIED; PHH, Interstitial lung disease TECHNIQUE: Multiple axial images were obtained through the chest. Sagittal and coronal reformats were created for review. MIP was performed on a separate workstation. Contrast used: mL of (None if empty) Oral contrast used: (None if empty) CT DLP: 265 mGycm, Automated exposure control for dose reduction was used. FINDINGS: LUNGS/ PLEURA: Improved aeration of some of the areas of focal consolidation/nodule-like area seen on prior. Scattered interstitial prominence No evidence for honeycombing. Postsurgical changes along the right lung. Intrafissural lymph node along right minor fissure series 3 image 29. Nodule-like densities in the ri ght lower lobe laterally not significantly changed there is improved aeration from some linear opacit y seen on prior exam. No focal consolidation, pneumothorax or pleural effusion. AIRWAY: No evidence for bronchial wall thickening or bronchiectasis. HEART: Cardiomegaly is demonstrated. Moderate coronary artery calcifications present. MEDIASTINUM: No gross evidence of adenopathy. VASCULATURE: No aortic aneurysm. MUSCULOSKELETAL: Mild disc degeneration changes are present throughout the thoracolumbar spine second lazarus to osteophyte formation and facet joint arthropathy. SOFT TISSUES/LYMPH NODES: Unremarkable. LOWER NECK: No significant findings. UPPER ABDOMEN: No significant findings. IMPRESSION: 1. Scattered prominent interstitial lung markings not significantly changed from prior on 07/28/2023. There is no evidence for honeycombing to suggest pulmonary fibrosis. Findings are nonspecific and co uld represent sequela prior atypical pneumonia. Given findings increased from 2015 before covid. 2. Cardiomegaly. 3. Moderate coronary artery atherosclerosis. [facility], , 09/06/2024 11:20 AM
== END | disposition home or self-care (01) ==
LOC: RADCTMAIN 10:24
PROVIDERS: ATTEND Internal Medicine Critical Care Medicine
DX: J84.9 Interstitial pulmonary disease, unspecified (principal); I25.10 Atherosclerotic heart disease of native coronary artery without angina pectoris; I51.7 Cardiomegaly; R91.8 Other nonspecific abnormal finding of lung field
CPT/HCPCS: 71250

== ENCOUNTER → 2024-11-09 | Outpatient (CLI) | payer MEDICARE ==
--- NOTE | 2024-11-09 16:02 | US ---
EXAMINATION TYPE: US carotid duplex BILAT DATE OF EXAM: 11/09/2024 COMPARISON: US 2016 CLINICAL INDICATION: Female, 84 years old with history of I65.23 OCCLUSION AND STENOSIS OF BILATERAL CAROTID; Hx hypertension, hyperlipidemia, diabetes. Dizziness. TECHNIQUE: Grayscale, color Doppler and spectral Doppler evaluation of the bilateral carotid systems and vertebral arteries. Indirect Doppler criteria was utilized. FINDINGS: EXAM MEASUREMENTS: RIGHT: Peak Systolic Velocity (PSV) cm/sec ----- Right CCA: 87.0 ----- Right ICA: 104.0 ----- Right ECA: 90.8 ICA/CCA ratio: 1.2 RIGHT: End Diastole cm/sec ----- Right CCA: 14.4 ----- Right ICA: 23.7 ----- Right ECA: 0.0 LEFT: Peak Systolic Velocity (PSV) cm/sec ----- Left CCA: 89.7 ----- Left ICA: 108.2 ----- Left ECA: 91.4 ICA/CCA ratio: 1.2 LEFT: End Diastole cm/sec ----- Left CCA: 0.0 ----- Left ICA: 21.5 ----- Left ECA: 0.0 VERTEBRALS (direction of flow): Right Vertebral: Antegrade Left Vertebral: Antegrade Rhythm: Normal [employer]ARING HE[employer] TECHNICIAN NOTES: *No elevated velocities at this time. Some plaque seen bilateral bulbs. IMPRESSION: No hemodynamically significant internal carotid artery stenosis on either side. Criteria for Assigning % of Stenosis / Diameter reduction (Estimation based on the indirect measurements of the internal carotid artery velocities (ICA PSV). 1. Normal (no stenosis)=ICA PSV < 180 cm/s: ratio < 2.0: ICA EDV<40 cm/s. 2. Less than 50% stenosis=ICA PSV < 180 cm/s: ratio < 2.0: ICA EDV<40 cm/s. 3. 50 to 69% stenosis=ICA PSV of 180 to 230 cm/s: ration 2.0 ? 4.0: ICA EDV 40-100 cm/s. PSV 125-180 cm/sec and ICA/CCA PSV Ratio ? 2.0 is also consistent with 50-69% stenosis 4. Greater than 70% stenosis to near occlusion= ICA PSV > 230 cm/s: ratio > 4.0: ICA EDV > 100 cm/s. 5. Near occlusion= ICA PSV velocities may be low or undetectable: variable ratio and ICA EDV. 6. Total occlusion=unable to detect flow. [facility], Workstation: [facility], 11/09/2024 3:59 PM
--- NOTE | 2024-11-10 08:08 | CA ---
Transthoracic Echo Report Name: Evelia Macias Age: 84 Gender: F : 1940 Exam Date: 11/09/2024 13:17 Exam Location: [facility] Ht (in): 64 Wt (lb): 159 Ordering Physician: Germaine Mora MD Attending/Referring Phys: Germaine Mora MD [employer] Lana Musa, RD Procedure CPT: Indications: I65.23 OCCLUSION AND STENOSIS OF BILATERAL CAROTID Cardiac Hx: Technical Quality: Technically difficult study Contrast 1: Definity Total Dose (mL): 2 Contrast 2: Total Dose (mL): MEASUREMENTS (Male / Female) Normal Values 2D ECHO LV Diastolic Diameter PLAX 4.4 cm 4.2 - 5.9 / 3.9 - 5.3 cm LV Systolic Diameter PLAX 3.2 cm IVS Diastolic Thickness 1.0 cm 0.6 - 1.0 / 0.6 - 0.9 cm LVPW Diastolic Thickness 0.9 cm 0.6 - 1.0 / 0.6 - 0.9 cm LV Relative Wall Thickness 0.4 RV Internal Dim ED PLAX 3.1 cm LVOT Diameter 1.6 cm Aortic Root Diameter 2.9 cm LA Systolic Diameter LX 2.8 cm 3.0 - 4.0 / 2.7 - 3.8 cm DOPPLER MV Peak Velocity 148.7 cm/s MV Peak Gradient 8.8 mmHg MV Mean Velocity 90.3 cm/s MV Mean Gradient 3.7 mmHg MV Velocity Time Integral 25.4 cm MV Area PHT 3.4 cm??? Mitral E Point Velocity 104.7 cm/s Mitral A Point Velocity 124.6 cm/s Mitral E to A Ratio 0.8 MV Deceleration Time 220.5 ms TR Peak Velocity 268.9 cm/s TR Peak Gradient 28.9 mmHg Right Atrial Pressure 5.0 mmHg Pulmonary Artery Systolic Pressu 33.9 mmHg Right Ventricular Systolic Press 33.9 mmHg FINDINGS Left Ventricle Left ventricular ejection fraction is estimated at 60 %. Normal left ventricular wall motion. No obvious regional wall motion abnormalities. Left ventricular cavity size normal. Left ventricular wall thickness normal. Right Ventricle Right ventricle not well visualized. Right ventricular systolic pressure within normal limits. Right Atrium Normal right atrial size. Left Atrium Left atrium not well visualized. Mitral Valve Moderate mitral annular calcification. Mitral valve thickened. No mitral stenosis. No mitral regurgitation. Aortic Valve Diffuse thickening (sclerosis) of the aortic valve cusps without reduced excursion. No aortic stenosis. No aortic regurgitation. Tricuspid Valve Structurally normal tricuspid valve. No tricuspid stenosis. Trace tricuspid regurgitation. Pulmonic Valve Pulmonic valve not well visualized. No pulmonic stenosis. No pulmonic regurgitation. Pericardium No pericardial effusion. Aorta Normal size aortic root and proximal ascending aorta. CONCLUSIONS Normal LV size and systolic function. Aortic valvular sclerosis and moderate mitral annular calcification. There is no restriction of aortic valve leaflets, no clear-cut stenosis, aortic valve was not well interrogated. There is no significant mitral regurgitation or tricuspid regurgitation. No pericardial effusion. No pulmonary hypertension Previewed by: Dr. Gerson Silva MD (Electronically Signed) Final Date: 10 Nov 2024 08:07
== END | disposition home or self-care (01) ==
LOC: RADUSWWP 12:16
PROVIDERS: ATTEND Internal Medicine
DX: I65.23 Occlusion and stenosis of bilateral carotid arteries (principal); I35.0 Nonrheumatic aortic (valve) stenosis; E11.9 Type 2 diabetes mellitus without complications; E78.5 Hyperlipidemia, unspecified; I10 Essential (primary) hypertension; I08.0 Rheumatic disorders of both mitral and aortic valves
CPT/HCPCS: 93306; 93880